=== PATIENT | male | born 1965 | race Caucasian/White ===

== ENCOUNTER 2021-02-28 08:57 | Inpatient (IN) ==
--- NOTE | 2021-02-28 09:45 | Emergency Department Note ---
Impression & Plan Acute hypoxemic respiratory failure due to COVID-19, Pneumonia due to COVID-19 virus ED Provider Note NAME: RAMOS FONG AGE: 55 SEX: M : 1965 ARRIVES VIA: Walk-In INFORMANT: Patient, ED PROVIDER(S): Gio Nunn MD Chief Complaint: Shortness of breath, low pulse oximeter HPI: Patient does present with the above complaints. The patient did not symptomatic around last Sunday. The patient did test positive this past Sunday. The patient was seen 2 days prior was noted to have Covid pneumonia and was discharged with a pulse oximeter. The patient was told to return to the patient did have lower oxygen saturations which the patient noticed in the mid 80s. Patient is a non-smoker and unvaccinated. No prior history of DVT or PE. No recent surgeries or hospitalizations. Patient denies any lower extremity swelling or calf pain. No prior heart or lung history. Patient has been trying an albuterol inhaler and steroids but without much improvement in symptoms. The patient states that initially he had more cough which has since improved. ROS: See HPI for pertinent positives and negatives. A total of 10 systems were reviewed and otherwise negative. Past medical history: See below Surgical history: See below Social history: See below Physical Exam: GENERAL: Wearing a mask, nontoxic in appearance. EYE EXAM: Normal conjunctiva. PERRL, no anisocoria and EOM's grossly intact w/o pain. NECK: Supple, no nuchal rigidity, no adenopathy, non-tender. No signs of meningismus. LUNGS: Clear to auscultation. Normal chest wall mechanics. HEART: Cardiac and regular, no MRG. ABDOMEN: Abdomen soft, non-tender, normo-active bowel sounds, no masses, no rebound or guarding. BACK: No CVA TTP. SKIN: No rashes and no bruising. UPPER EXTREMITIES: Upper extremities are grossly normal. LOWER EXTREMITIES: Grossly normal, no edema. Negative Homans' sign bilaterally. NEURO EXAM: A&O x3, cranial nerves II-XII grossly intact, normal speech, moves all 4 extremities on command w/o issue. Differential diagnoses: Reactive airway disease, pneumonia, pneumothorax, COPD, CHF, infections, cardiac ischemia, pulmonary embolism, musculoskeletal, gastrointestinal, as well as other pathologies. Course: Patient was seen and evaluated the bedside. Full history physical exam was performed. EKG interpreted by me Normal sinus rhythm, rate 97, normal intervals, normal axis, no ST changes. Imaging Studies: See Below Cardiac monitoring: An order was placed for continuous cardiac monitoring. The monitor shows a rate of 102 with tachycardic and regular rhythm. MDM: Patient did present hypoxic in the plate patient was placed on supplemental nasal cannula oxygen. Blood work was obtained and the patient was treated with dexamethasone. Patient has a normal white count and hemoglobin. The patient does have mild lymphopenia. Mild hypocalcemia noted. Troponin undetectable. Covid positive. Chest x-ray does show pneumonia. I did speak with the on-call hospitalist Mandy Almanzar PA-C and the patient was admitted by Dr. Marie. Critical Care: I have personally spent 38 minutes of critical care time in direct management of this patient. This includes bedside care, interpretation of diagnostic studies, and testing, discussion with consultants, patient, and family members, and other require inpatient management activities. This 38 minutes is in excess of all separately billable procedures. Past Med/Surg History Medical History Asthma Hypertension Surgical History S/P tonsillectomy Social History Smoking Status: Never smoker Hx Alcohol Use: No Hx Substance Use: No Preferred Language: Guinean Communication Ability: Effective Seamless Hosiery Knitter Required: No Beliefs That Will Affect Care: None Current Living Situation: Spouse Other Information That Helps Us Care for You: No Feels Safe at Home: Yes Safety Concerns: Feels Safe At This Time Assistive Devices: None Allergies Allergies Allergy/AdvReac Type Severity Reaction Status Date / Time No Known Allergies Allergy Unknown NONE Unverified 02/28/21 10:36 Home Meds Home Medications Medication Instructions Recorded Confirmed acetaminophen 500 mg tablet 500 mg PO Q6H PRN 02/28/21 02/28/21 (Tylenol Extra Strength) famotidine 20 mg tablet 20 mg PO HS 02/28/21 02/28/21 fluticasone furoate 100 1 inh INHALATION DAILY 02/28/21 02/28/21 mcg-vilanterol 25 mcg/dose inhalation powder (Breo Ellipta) loratadine 10 mg tablet 10 mg PO DAILY 02/28/21 02/28/21 Previous Rx's Medication Instructions Recorded albuterol sulfate 90 mcg/actuation 2 inh INHALATION Q4H PRN #6.7 g 02/25/21 aerosol inhaler prednisone 20 mg tablet 40 mg PO DAILY 4 Days #8 tab 02/25/21 Results & Data (ED) Vital Signs Vital Signs - 24 hr 02/28/21 08:59 02/28/21 10:18 02/28/21 10:28 Temperature 36.7 C Temperature Source Temporal Artery Scan Pulse Rate 102 H 95 H Pulse Rate from SpO2 Sensor 94 H Respiratory Rate 18 23 Respiratory Effort / Characteristics Non-Labored Respiratory Depth Normal Blood Pressure 153/85 H 160/92 H Blood Pressure Mean 107 114 Pulse Oximetry 88 L 93 94 Oxygen Delivery Method Room Air Nasal Cannula Oxygen Flow Rate 4 Sepsis Recent Fever Within 48 Hours No Sepsis New/Unexplained Change in Mental Status No Sepsis Action Taken by Nursing No Action Required 02/28/21 10:29 02/28/21 10:30 02/28/21 11:00 Temperature Temperature Source Pulse Rate 94 H 97 H Pulse Rate from SpO2 Sensor 93 H 96 H Respiratory Rate 21 14 Respiratory Effort / Characteristics Short of Breath Respiratory Depth Blood Pressure 148/97 H Blood Pressure Mean 114 Pulse Oximetry 94 90 Oxygen Delivery Method Nasal Cannula Nasal Cannula Oxygen Flow Rate 4 4 Sepsis Recent Fever Within 48 Hours Sepsis New/Unexplained Change in Mental Status Sepsis Action Taken by Nursing 02/28/21 11:12 02/28/21 11:30 02/28/21 12:00 Temperature Temperature Source Pulse Rate 95 H 93 H 94 H Pulse Rate from SpO2 Sensor 95 H 93 H 93 H Respiratory Rate 27 H 23 22 Respiratory Effort / Characteristics Respiratory Depth Blood Pressure 133/80 137/90 132/89 Blood Pressure Mean 97 105 103 Pulse Oximetry 92 93 90 Oxygen Delivery Method Nasal Cannula Nasal Cannula Nasal Cannula Oxygen Flow Rate 4 4 4 Sepsis Recent Fever Within 48 Hours Sepsis New/Unexplained Change in Mental Status Sepsis Action Taken by [facility] Medications Current Medication List: was personally reviewed by me Laboratory Data Attestation: I reviewed the patient's lab results. Result diagrams: 02/28/21 10:20 02/28/21 10:20 Lab Results 02/28/21 02/28/21 02/28/21 Range/Units 10:20 10:20 10:20 WBC 9.84 (4.8-10.8) K/uL RBC 4.38 L (4.7-6.1) M/uL Hgb 14.3 (14.0-18.0) g/dL Hct 43.0 (42-52) % MCV 98.2 (80-100) fL MCH 32.6 (25-34) pg MCHC 33.3 (32-36) g/dL RDW Std Deviation 48.7 H (36.4-46.3) fL RDW Coeff of Chapis 13.6 (11.5-14.5) % Plt Count 168 (130-400) K/uL MPV 10.0 (7.4-10.4) fL Immature Gran % (Auto) 0.3 % Neut % (Auto) 90.0 % Lymph % (Auto) 7.5 % Wise % (Auto) 2.1 % Eos % (Auto) 0.0 % Baso % (Auto) 0.1 % Neut # (Auto) 8.85 H (1.4-6.5) K/uL Lymph # (Auto) 0.74 L (1.2-3.4) K/uL Wise # (Auto) 0.21 (0.11-0.59) K/uL Eos # (Auto) 0.00 (0-0.5) K/uL Baso # (Auto) 0.01 (0-0.2) K/uL Immature Gran # (Auto) 0.03 H (0.00-0.02) K/uL Sodium 134 L (136-145) mmol/L Potassium 4.2 (3.5-5.1) mmol/L Chloride 101 (98-107) mmol/L Carbon Dioxide 29 (21-32) mmol/L Anion Gap 4.0 (3-11) BUN 17 (7-18) mg/dl Creatinine 1.30 (0.6-1.4) mg/dl Est Cr Clr Drug Dosing 84.7 ml/min Est GFR ( Amer) 70.7 ml/min Est GFR (Non-Af Amer) 61.0 ml/min BUN/Creatinine Ratio 13.0 (10-20) Glucose 118 H (70-99) mg/dl Calcium 8.1 L (8.5-10.1) mg/dl Magnesium 2.1 (1.8-2.4) mg/dl Total Bilirubin 0.6 (0.2-1) mg/dl AST 57 H (15-37) U/L ALT 51 (12-78) U/L Alkaline Phosphatase 59 (45-117) U/L Troponin I < 0.015 (0-0.045) ng/ml C-Reactive Protein 10.80 H (0-0.29) mg/dl Total Protein 7.1 (6.4-8.2) gm/dl Albumin 3.0 L (3.4-5.0) gm/dl Globulin 4.1 H (2.5-4.0) gm/dl Albumin/Globulin Ratio 0.7 L (0.9-2) Procalcitonin (0-0.5) ng/ml COVID-19 Eval Order SARS-CoV-2 (PCR) (Negative) 02/28/21 02/28/21 02/28/21 Range/Units 10:20 10:27 10:27 WBC (4.8-10.8) K/uL RBC (4.7-6.1) M/uL Hgb (14.0-18.0) g/dL Hct (42-52) % MCV (80-100) fL MCH (25-34) pg MCHC (32-36) g/dL RDW Std Deviation (36.4-46.3) fL RDW Coeff of Chapis (11.5-14.5) % Plt Count (130-400) K/uL MPV (7.4-10.4) fL Immature Gran % (Auto) % Neut % (Auto) % Lymph % (Auto) % Wise % (Auto) % Eos % (Auto) % Baso % (Auto) % Neut # (Auto) (1.4-6.5) K/uL Lymph # (Auto) (1.2-3.4) K/uL Wise # (Auto) (0.11-0.59) K/uL Eos # (Auto) (0-0.5) K/uL Baso # (Auto) (0-0.2) K/uL Immature Gran # (Auto) (0.00-0.02) K/uL Sodium (136-145) mmol/L Potassium (3.5-5.1) mmol/L Chloride (98-107) mmol/L Carbon Dioxide (21-32) mmol/L Anion Gap (3-11) BUN (7-18) mg/dl Creatinine (0.6-1.4) mg/dl Est Cr Clr Drug Dosing ml/min Est GFR ( Amer) ml/min Est GFR (Non-Af Amer) ml/min BUN/Creatinine Ratio (10-20) Glucose (70-99) mg/dl Calcium (8.5-10.1) mg/dl Magnesium (1.8-2.4) mg/dl Total Bilirubin (0.2-1) mg/dl AST (15-37) U/L ALT (12-78) U/L Alkaline Phosphatase (45-117) U/L Troponin I (0-0.045) ng/ml C-Reactive Protein (0-0.29) mg/dl Total Protein (6.4-8.2) gm/dl Albumin (3.4-5.0) gm/dl Globulin (2.5-4.0) gm/dl Albumin/Globulin Ratio (0.9-2) Procalcitonin 0.73 H (0-0.5) ng/ml COVID-19 Eval Order Covid19 at [facility] SARS-CoV-2 (PCR) POSITIVE A* (Negative) Administered Medications Enoxaparin Sodium (Enoxaparin Inj 40 Mg/0.4 Ml Syr) 40 mg SQ Q12 BERTO Stop: 03/30/21 14:59 Last Admin: 02/28/21 15:57 Dose: 40 mg Documented by: [id number] Remdesivir 200 mg/ Sodium (Chloride) 250 mls @ 125 mls/hr IV 1500 ONE; Protocol Stop: 02/28/21 16:59 Last Admin: 02/28/21 15:57 Dose: 125 mls/hr Documented by: [id number] Sodium Chloride (Sodium Chloride 0.9% 10ml Flush) 30 ml IV Q24H BERTO Stop: 03/04/21 14:00 Last Admin: 02/28/21 15:41 Dose: Not Given Documented by: [id number] Discontinued Medications Dexamethasone Sodium Phosphate (DexamethasonePf 10 Mg/Ml Vial) 6 mg IV NOW ONE Stop: 02/28/21 09:57 Last Admin: 02/28/21 10:19 Dose: 6 mg Documented by: [id number] Sodium Chloride (Nss 1000ml) 1,000 mls @ 999 mls/hr IV .Q1H1M BERTO Stop: 02/28/21 11:00 Last Infusion: 02/28/21 11:24 Dose: 0 mls/hr Documented by: [id number] Admin: 02/28/21 10:19 Dose: 999 mls/hr Documented by: [id number] Imaging Data Radiologist's Impression: Chest X-Ray 02/28/21 09:56 XR chest 1V portable HISTORY: 55 years-old Male Dyspnea acute shortness of breath with cough COMPARISON: Chest radiograph 02/25/2021, CTA chest 11/26/2014 TECHNIQUE: Portable AP view of the chest FINDINGS: Cardiac silhouette is enlarged. Progressively worsened multifocal bilateral airspace opacities. No pneumothorax or large pleural effusion. Spondylitic spur ring of the spine. No acute fracture. IMPRESSION: Progressively worsened multifocal pneumonia. ACT 112: Negative or not required by law. The above report was generated using voice recognition software. It may contain grammatical, syntax or spelling errors. Electronically signed by: Dani Medina M.D. 02/28/2021 10:57 AM Discharge Plan Visit Data Chief Complaint: Respiratory Problems Stated Complaint: LOW OXY ED Provider: Gio Nunn Discharge Problem: Acute hypoxemic respiratory failure due to COVID-19, Pneumonia due to COVID-19 virus Patient Disposition: Admitted As Inpatient Discharge Instructions Interventions: ED Discharge Assessment Last Done: 02/28/21 12:54
[2021-02-28] MEDS ORDERED: dexAMETHasone**PF** 10 MG/ML VIAL IV ONE (09:56)
[2021-02-28] MEDS ORDERED: SODIUM CHLORIDE 0.9% 1000ML 1,000 ML IV SCH (10:00)
[2021-02-28 10:43] LABS: Basophils # (auto) 0.01 K/uL (0-0.2); Basophils % (auto) 0.1 %; Hemoglobin 14.3 g/dL (14.0-18.0); Immature Granulocytes # (auto) 0.03 K/uL (0.00-0.02); Immature Granulocytes % (auto) 0.3 %; Lymphocytes # (auto) 0.74 K/uL (1.2-3.4); Lymphocytes % (auto) 7.5 %; Mean Corpuscular Hemoglobin 32.6 pg (25-34); Mean Corpuscular Hgb Conc 33.3 g/dL (32-36); Mean Corpuscular Volume 98.2 fL (80-100); Monocytes # (auto) 0.21 K/uL (0.11-0.59); Monocytes % (auto) 2.1 %; Neutrophils # (auto) 8.85 K/uL (1.4-6.5); Platelet Count 168 K/uL (130-400); RDW Coefficient of Variation 13.6 % (11.5-14.5); RDW Standard Deviation 48.7 fL (36.4-46.3); Red Blood Count 4.38 M/uL (4.7-6.1); White Blood Count 9.84 K/uL (4.8-10.8)
--- NOTE | 2021-02-28 10:59 | XRay Report ---
XR chest 1V portable HISTORY: 55 years-old Male Dyspnea acute shortness of breath with cough COMPARISON: Chest radiograph 02/25/2021, CTA chest 11/26/2014 TECHNIQUE: Portable AP view of the chest FINDINGS: Cardiac silhouette is enlarged. Progressively worsened multifocal bilateral airspace opacities. No pn eumothorax or large pleural effusion. Spondylitic spurring of the spine. No acute fracture. IMPRESSION: Progressively worsened multifocal pneumonia. ACT 112: Negative or not required by law. The above report was generated using voice recognition software. It may contain grammatical, syntax o r spelling errors. Electronically signed by: Dani Medina M.D. 02/28/2021 10:57 AM
[2021-02-28 11:01] LABS: Alanine Aminotransferase 51 U/L (12-78); Aspartate Aminotransferase 57 U/L (15-37); Blood Urea Nitrogen 17 mg/dl (7-18); Calcium 8.1 mg/dl (8.5-10.1); Carbon Dioxide 29 mmol/L (21-32); Chloride 101 mmol/L (98-107); Creatinine Clr Calc Pharmacy 84.7 ml/min; Est GFR (African American) 70.7 ml/min; Glucose 118 mg/dl (70-99); Magnesium 2.1 mg/dl (1.8-2.4); Potassium 4.2 mmol/L (3.5-5.1); Sodium 134 mmol/L (136-145)
[2021-02-28 11:06] LABS: Albumin Globulin Ratio 0.7 (0.9-2); Alkaline Phosphatase 59 U/L (45-117); Bilirubin,Total 0.6 mg/dl (0.2-1); Globulin 4.1 gm/dl (2.5-4.0); Total Protein 7.1 gm/dl (6.4-8.2); Troponin I < 0.015 ng/ml (0-0.045)
--- NOTE | 2021-02-28 11:38 | History & Physical Report ---
Date of Service February 28, 2021 Assessment & Plan (1) Pneumonia due to COVID-19 virus: (2) Asthma: (3) Hypoxia: Plan: Pt with known COVID exposure about two weeks ago, symptoms x 9 days, tested positive last week, diagnosed with pneumonia on Sunday, now with hypoxia on RA in past 24 hrs. - Received IV dexamethasone in ED - will continue 6 mg IV daily for up to 10 days - Pt agreeable to Remdesivir - reviewed indications, risks, and benefits. Monitor labs daily - Continue supplemental O2 to maintain pulseox >92% - currently requiring 4 L via NC - Check CRP and procalcitonin - COVID isolation precautions Pt seen and reviewed with attending physician, Dr. Marie. Plan of care discussed and as outlined above. Code Status: full code DVT Prophylaxis: Lovenox 40 mg subQ BID Analy Almanzar PA-C History of Present Illness Chief Complaint: low oxygen levels Primary Care Provider: Bianka Baker PA-C This is a 55 y/o male with a PMH of moderate persistent asthma who presents for evaluation of hypoxia and worsening shortness of breath. Pt was exposed to a co-worker with pneumonia about two weeks ago. Nine days ago, he started with a cough productive of sputum and fatigue. Five days ago he decided to get tested for COVID due to the exposure and worsening symptoms. The test came back positive on Sunday (3 days ago) and he was seen by his PCP for possible pneumonia. His O2 sats in the office were borderline on RA (low 90s) and he was tachycardic so he was referred to the ED for evaluation. In the ED, he was diagnosed with COVID pneumonia, given steroids and an albuterol inhaler and discharged home with a pulseox to monitor his sats at home. Last night his sats started to drop into the 84-87% range so this morning he came to the ED for evaluation and additional treatment. He has now been referred for admission. Pt has not been vaccinated for COVID. Today, he continues with a cough that was initially productive but now less so. No hemoptysis. Ribs sore from coughing so hard/so much. He is short of breath with exertion and with lying flat. Breathing seems to be okay at rest if he is sitting up. Fever started a few days ago - Tmax 102.5F. +chills and sweats. Using Tylenol with some relief. Mild nausea but no vomiting or diarrhea. Appetite decreased but trying to keep up with fluids - water, OJ, tim ronny. No significant myalgias or arthralgias. No change in taste or smell. +fatigue. No TORRES, CP, chest heaviness but does not difficulty taking a deep breath, wheezing at times. Occasional dizziness with position changes. Recent diagnosis with asthma - two years of chronic cough. History of frequent pneumonia past ten years - around twice a year. Allergies Allergy/AdvReac Type Severity Reaction Status Date / Time No Known Allergies Allergy Unknown NONE Unverified 02/28/21 10:36 Home Medications Medication Instructions Recorded Confirmed Type albuterol sulfate 90 mcg/actuation 2 inh INHALATION Q4H PRN #6.7 g 02/25/21 Rx aerosol inhaler prednisone 20 mg tablet 40 mg PO DAILY 4 Days #8 tab 02/25/21 02/28/21 Rx acetaminophen 500 mg tablet 500 mg PO Q6H PRN 02/28/21 02/28/21 History (Tylenol Extra Strength) famotidine 20 mg tablet 20 mg PO HS 02/28/21 02/28/21 History fluticasone furoate 100 1 inh INHALATION DAILY 02/28/21 02/28/21 History mcg-vilanterol 25 mcg/dose inhalation powder (Breo Ellipta) loratadine 10 mg tablet 10 mg PO DAILY 02/28/21 02/28/21 History Past Med/Surg History Medical History Asthma Hypertension Surgical History S/P tonsillectomy Social History Smoking Status: Never smoker Hx Alcohol Use: No Hx Substance Use: No Preferred Language: Omani Communication Ability: Effective Office Administrative Assistant Required: No Beliefs That Will Affect Care: None Current Living Situation: Spouse Other Information That Helps Us Care for You: No Feels Safe at Home: Yes Safety Concerns: Feels Safe At This Time Assistive Devices: Oxygen - Continuous Review of Systems Review of Systems: All systems reviewed & are unremarkable except as noted in HPI & below Constitutional: + fever, + chills, + fatigue and + weakness Eyes: no diplopia and no worsening vision Ear, Nose, Mouth, Throat: no nasal congestion and no sore throat Respiratory: as per Subjective / HPI, + cough, + dyspnea on exertion, + pain with cough and + sputum production; no hemoptysis and no wheezing Cardiovascular: + orthopnea and + lightheadedness (positional); no chest pain with activity, no palpitations, no syncope and no edema Gastrointestinal: + nausea; no abdominal pain, no vomiting, no diarrhea/loose stools and no blood in stools Genitourinary: no dysuria or no hematuria Musculoskeletal: no back pain, no neck pain and no joint pain Integumentary: no rash, no skin ulcer and no erythema Neurologic: + generalized weakness; no falls, no seizure-like activity, no syncope, no headache(s) and no confusion Psychiatric: no depression and no anxiety Physical Exam Constitutional: well developed and well nourished; no acute distress Eyes: + anicteric sclerae Neck: trachea midline Respiratory: no respiratory distress Auscultation: + diminished lung sounds and + crackles (right > left - from bases to mid-lung); no rhonchi and no wheezes Cardiovascular: Rate/Rhythm: regular rate and regular rhythm Heart Sounds: no gallop, no murmur and no cardiac rub Vessels: dorsalis pedis pulses present and radial pulses present Extremities: no calf tenderness and no edema Gastrointestinal (Abdomen): Inspection/Auscultation: normal bowel sounds; abdomen not distended Percussion/Palpation: abdomen soft; abdomen nontender Musculoskeletal: Head/Neck/Chest: normocephalic, head atraumatic and neck supple Skin: no rashes, warm and dry Neurologic: moves all extremities; no focal motor deficits and not confused Psychiatric: A+Ox3, euthymic affect Results & Data Results & Data ([facility]) Vital Signs (Past 12 Hours) Vital Signs Temp Pulse Resp BP Pulse Ox 02/28/21 11:12 95 H 27 H 133/80 92 02/28/21 11:00 97 H 14 90 02/28/21 10:30 94 H 21 148/97 H 94 02/28/21 10:28 94 02/28/21 10:18 95 H 23 160/92 H 93 02/28/21 08:59 36.7 C 102 H 18 153/85 H 88 L Laboratory Results Laboratory Results - last 24 hr 02/28/21 02/28/21 02/28/21 10:20 10:20 10:20 WBC 9.84 RBC 4.38 L Hgb 14.3 Hct 43.0 MCV 98.2 MCH 32.6 MCHC 33.3 RDW Std Deviation 48.7 H RDW Coeff of Chapis 13.6 Plt Count 168 MPV 10.0 Immature Gran % (Auto) 0.3 Neut % (Auto) 90.0 Lymph % (Auto) 7.5 [place] % (Auto) 2.1 Eos % (Auto) 0.0 Baso % (Auto) 0.1 Neut # (Auto) 8.85 H Lymph # (Auto) 0.74 L [place] # (Auto) 0.21 Eos # (Auto) 0.00 Baso # (Auto) 0.01 Immature Gran # (Auto) 0.03 H Sodium 134 L Potassium 4.2 Chloride 101 Carbon Dioxide 29 Anion Gap 4.0 BUN 17 Creatinine 1.30 Est Cr Clr Drug Dosing 84.7 Est GFR ( Amer) 70.7 Est GFR (Non-Af Amer) 61.0 BUN/Creatinine Ratio 13.0 Glucose 118 H Calcium 8.1 L Magnesium 2.1 Total Bilirubin 0.6 AST 57 H ALT 51 Alkaline Phosphatase 59 Troponin I < 0.015 C-Reactive Protein Pending Total Protein 7.1 Albumin 3.0 L Globulin 4.1 H Albumin/Globulin Ratio 0.7 L Procalcitonin COVID-19 Eval Order SARS-CoV-2 (PCR) 02/28/21 02/28/21 02/28/21 10:20 10:27 10:27 WBC RBC Hgb Hct MCV MCH MCHC RDW Std Deviation RDW Coeff of Chapis Plt Count MPV Immature Gran % (Auto) Neut % (Auto) Lymph % (Auto) [place] % (Auto) Eos % (Auto) Baso % (Auto) Neut # (Auto) Lymph # (Auto) [place] # (Auto) Eos # (Auto) Baso # (Auto) Immature Gran # (Auto) Sodium Potassium Chloride Carbon Dioxide Anion Gap BUN Creatinine Est Cr Clr Drug Dosing Est GFR ( Amer) Est GFR (Non-Af Amer) BUN/Creatinine Ratio Glucose Calcium Magnesium Total Bilirubin AST ALT Alkaline Phosphatase Troponin I C-Reactive Protein Total Protein Albumin Globulin Albumin/Globulin Ratio Procalcitonin Pending COVID-19 Eval Order Covid19 at [facility] SARS-CoV-2 (PCR) POSITIVE A* Diagnostic Findings Chest X-ray 02/28/21 - IMPRESSION: Progressively worsened multifocal pneumonia. Medications Administered Discontinued Medications Dexamethasone Sodium Phosphate (DexamethasonePf 10 Mg/Ml Vial) 6 mg IV NOW ONE Stop: 02/28/21 09:57 Last Admin: 02/28/21 10:19 Dose: 6 mg Documented by: [id number] Sodium Chloride (Nss 1000ml) 1,000 mls @ 999 mls/hr IV .Q1H1M BERTO Stop: 02/28/21 11:00 Last Infusion: 02/28/21 11:24 Dose: 0 mls/hr Documented by: [id number] Admin: 02/28/21 10:19 Dose: 999 mls/hr Documented by: [id number] Supervising Physician Co-Signing Physician Notes Attending addendum The patient was seen and examined in telemetry unit and in the Covid room He is not being vaccinated for Covid and has been having symptoms since Sunday last with increasing shortness of breath and cough Was in ER on Sunday and was sent home and the condition got worse over the weekend Has been requiring 6 L of nasal cannula oxygen to maintain saturation now He has cough and also has had fever On examination Obese with minimal distress at rest Hemodynamically stable with blood pressure on the upper side Chest-decreased breath sounds with basilar crackles Heart-S1-S2, regular Abdomen-benign Extremities-negative for any edema Admission labs, imaging studies reviewed Has COVID-19 pneumonia Started with intravenous dexamethasone and remdesivir Oxygen as needed to keep saturation above 90% Proning if needed Cough suppressant Use of spirometry and also flutter valve Agree with assessment and plan as outlined above by RENNY Zhong Dr
[2021-02-28] MEDS ORDERED: ACETAMINOPHEN 325 MG TAB PO PRN (13:59)
--- NOTE | 2021-02-28 14:35 | Electrocardiogram Report ---
Test Reason : Blood Pressure : / mmHG Vent. Rate : 097 BPM Atrial Rate : 097 BPM P-R Int : 120 ms QRS Dur : 074 ms QT Int : 346 ms P-R-T Axes : 013 046 019 degrees QTc Int : 439 ms Normal sinus rhythm Normal ECG When compared with ECG of 18-AUG-2020 18:08, No significant change was found Confirmed by Rg Soto ([id number]) on 02/28/2021 2:35:07 PM Referred By: Confirmed By:Tejas Soto
[2021-02-28] MEDS ORDERED: REMDESIVIR 200 mg: Day 1 IV ONE (15:00)
[2021-02-28] MEDS: SODIUM CHLORIDE 0.9% 10ML FLUSH IV SCH (15:41)
[2021-02-28] MEDS: ENOXAPARIN INJ 40 MG/0.4 ML SYR SQ SCH ×2 (15:57→22:08)
[2021-02-28] MEDS ORDERED: DOXYCYCLINE HYCLATE 100 MG in DEXTROSE 5% 100 ML IV STA (22:11)
--- NOTE | 2021-02-28 22:11 | Communication Note ---
Date of Service: February 28, 2021 Made aware by RN off increasing O2 requirement, O2 sats 80s on 10 L. Patient with junky cough symptoms. Chest x-ray as per my deposition bilateral pneumonia AP Acute hypoxemic respiratory failure secondary to COVID-19 pneumonia With superimposed bacterial infection given elevated procalcitonin Supplemental O2 Check ABG Ceftriaxone, Doxycycline Will relay to AM provider.
[2021-02-28] MEDS ORDERED: LEVALBUTEROL TARTRATE 15 GM HFA.AER.AD INH PRN (22:12)
[2021-02-28] MEDS ORDERED: LEVALBUTEROL TARTRATE 15 GM HFA.AER.AD INH STA (22:12)
[2021-02-28] MEDS ORDERED: methylPREDNISolone 20 MG in SYRINGE 0 ML IV ONE (22:15)
[2021-02-28 23:01] LABS: Base Excess ABG 1.1 mEq/L (-9-1.8); HCO3 ABG 24 mmol/L (19-24); Oxygen Saturation ABG 90.7 % (90-95); PCO2 ABG 32 mmHg (35-46); PO2 ABG 56 mmHg (80-95); pH ABG 7.49 (7.35-7.45)
[2021-02-28 23:03] LABS: Allen Test Pos (Pos)
[2021-02-28] MEDS: cefTRIAXone SODIUM 2,000 MG in DEXTROSE 5% 50 ML IV SCH (23:41)
[2021-03-01] MEDS ORDERED: ACETAMINOPHEN 325 MG TAB PO STA (00:43)
[2021-03-01] MEDS: BENZONATATE 100 MG CAPSULE PO PRN ×2 (01:46→21:23)
--- NOTE | 2021-03-01 06:46 | XRay Report ---
XR chest 1V portable HISTORY: 55 years-old Male low o2 acute hypoxia COMPARISON: Chest radiograph of same day at 10:33 AM TECHNIQUE: Portable AP view of the chest FINDINGS: Cardiac silhouette is enlarged, unchanged. No pneumothorax or large pleural effusion. Dense bilateral airspace opacities, left greater than right are redemonstrated and appear generally unchanged. No ac deuce fracture. IMPRESSION: No significant change of the bilateral airspace opacities compatible with multifocal pneu monia. ACT 112: Negative or not required by law. The above report was generated using voice recognition software. It may contain grammatical, syntax o r spelling errors. Electronically signed by: Dani Medina M.D. 03/01/2021 6:45 AM
[2021-03-01 06:58] LABS: BUN Creatinine Ratio 16.7 (10-20); Calcium 8.3 mg/dl (8.5-10.1); Creatinine Clr Calc Pharmacy 98.9 ml/min; Est GFR (African American) 86.5 ml/min; Est GFR (Non-African American) 74.6 ml/min; Magnesium 2.5 mg/dl (1.8-2.4); Phosphorus 3.4 mg/dl (2.5-4.9)
[2021-03-01] MEDS: ENOXAPARIN INJ 40 MG/0.4 ML SYR SQ SCH ×2 (08:04→20:35)
[2021-03-01] MEDS: DOXYCYCLINE HYCLATE 100 MG CAP PO SCH ×2 (08:04→20:35)
[2021-03-01] MEDS: dexAMETHasone 6 MG in SYRINGE 0 ML IV SCH (08:04)
[2021-03-01] MEDS ORDERED: FUROSEMIDE 40 MG in SYRINGE 0 ML IV ONE (08:43)
[2021-03-01] MEDS ORDERED: FUROSEMIDE 40 MG/4 ML VIAL IV ONE (09:00)
[2021-03-01] MEDS: REMDESIVIR 100 MG in SODIUM CHLORIDE 0.9% 230 ML IV SCH (11:37)
[2021-03-01] MEDS: SODIUM CHLORIDE 0.9% 10ML FLUSH IV SCH (13:36)
--- NOTE | 2021-03-01 19:09 | Hospitalist Progress Note ---
Date of Service March 01, 2021 Assessment & Plan (1) Pneumonia due to COVID-19 virus: Plan: Pt with known COVID exposure about two weeks ago, symptoms x 9 days, tested positive last week, diagnosed with pneumonia on Sunday, now with hypoxia on RA in past 24 hrs. -Did not receive any vaccine for COVID-19 - Received IV dexamethasone in ED - will continue 6 mg IV daily for up to 10 days - Pt agreeable to Remdesivir - reviewed indications, risks, and benefits. Mo nitor labs daily - Continue supplemental O2 to maintain pulseox >92% - currently requiring 4 L via NC - COVID isolation precautions -Has been using spirometer and also flutter valve -Advised to have prone position as tolerated Possible superimposed bacterial pneumonia Condition got worse last night Procalcitonin was elevated He has been started with intravenous ceftriaxone and doxycycline We will monitor (2) Asthma: Plan: Likely complicating hypoxia and symptoms (3) Hypoxia: Plan: Acute hypoxic respiratory failure secondary to COVID-19 pneumonia Plan: Code Status: full code DVT Prophylaxis: Lovenox 40 mg subQ BID Admission and Anticipated Discharge Date Admission Date: February 28, 2021 Subjective 03/01/2021 The patient was seen and examined in telemetry unit and in the Covid room He was noted to be more shortness of breath last night and required increasing flow of oxygen to maintain saturation He was started with intravenous antibiotic on top of Covid treatment Has been feeling a little bit better this morning Review of Systems Constitutional: + fever, + chills, + fatigue and + weakness Eyes: no diplopia and no worsening vision Ear, Nose, Mouth, Throat: no nasal congestion and no sore throat Respiratory: as per Subjective / HPI, + cough, + dyspnea on exertion, + pain with cough and + sputum production; no hemoptysis and no wheezing Cardiovascular: + orthopnea and + lightheadedness (positional); no chest pain with activity, no palpitations, no syncope and no edema Gastrointestinal: + nausea; no abdominal pain, no vomiting, no diarrhea/loose stools and no blood in stools Genitourinary: no dysuria or no hematuria Musculoskeletal: no back pain, no neck pain and no joint pain Integumentary: no rash, no skin ulcer and no erythema Neurologic: + generalized weakness; no falls, no seizure-like activity, no syncope, no headache(s) and no confusion Psychiatric: no depression and no anxiety Physical Exam Physical Exam: Lying in bed with moderate shortness of breath at rest Constitutional: well developed, well nourished, + ill appearing and + obese Eyes: PERRL, conjunctivae normal, anicteric sclerae ENMT: external ear and nose normal, oropharynx normal Neck: trachea midline, no thyromegaly Respiratory: + respiratory distress, + labored breathing, + cough and + tachypneic Auscultation: + diminished lung sounds and + crackles (Minimal crackles at the bases) Cardiovascular: Rate/Rhythm: regular rate and regular rhythm; not tachycardic Heart Sounds: normal S1 and normal S2; no murmur Extremities: + edema (Trace edema bilaterally) Gastrointestinal (Abdomen): Inspection/Auscultation: normal bowel sounds; abdomen not distended Percussion/Palpation: abdomen soft; abdomen nontender Musculoskeletal: No acute arthritis in any joint Neurologic: Alert, awake and oriented x3. No focal sensory and motor deficit appreciated Results & Data Results & Data ([facility]) Vital Signs (Past 12 Hours) Vital Signs Temp Pulse Resp BP Pulse Ox 03/01/21 15:29 36.5 C 90 18 126/83 92 03/01/21 15:14 87 18 91 03/01/21 11:31 77 16 90 03/01/21 11:09 36.9 C 89 22 134/92 90 03/01/21 07:59 72 18 93 03/01/21 07:12 36.6 C 80 23 129/87 90 Laboratory Results [facility] 03/01/21 04:58 Sodium 135 L Potassium 5.0 D Chloride 102 Carbon Dioxide 28 BUN 18 Creatinine 1.10 Glucose 134 H Calcium 8.3 L Medications Administered Current Inpatient Medications Acetaminophen (Acetaminophen 325 Mg Tab) 650 mg PO Q4H PRN PRN Reason: Pain or Fever Stop: 03/30/21 13:58 Benzonatate (Benzonatate 100 Mg Capsule) 100 mg PO TID PRN PRN Reason: Cough Stop: 03/31/21 00:42 Last Admin: 03/01/21 01:46 Dose: 100 mg Documented by: Doxycycline Hyclate (Doxycycline Hyclate 100 Mg Cap) 100 mg PO BID BERTO Stop: 03/08/21 08:59 Last Admin: 03/01/21 08:04 Dose: 100 mg Documented by: Enoxaparin Sodium (Enoxaparin Inj 40 Mg/0.4 Ml Syr) 40 mg SQ Q12 BERTO Stop: 03/30/21 14:59 Last Admin: 03/01/21 08:04 Dose: 40 mg Documented by: Remdesivir 100 mg/ Sodium (Chloride) 250 mls @ 250 mls/hr IV Q24H BERTO; Protocol Stop: 03/04/21 12:59 Last Infusion: 03/01/21 13:36 Dose: Infused Documented by: Dexamethasone 6 mg/ Syringe 1.5 mls @ 1 mls/min IV DAILY BERTO Stop: 03/11/21 08:59 Last Admin: 03/01/21 08:04 Dose: 1 mls/min Documented by: Ceftriaxone Sodium 2,000 mg/ (Dextrose) 70 mls @ 100 mls/hr IV Q24H BERTO; Protocol Stop: 03/07/21 22:29 Last Infusion: 03/01/21 00:34 Dose: Infused Documented by: Levalbuterol HCl (Levalbuterol Tartrate 15 Gm Hfa.Aer.Ad) 2 puffs INH Q4H PRN PRN Reason: sob/wheeze Stop: 03/30/21 22:11 Sodium Chloride (Sodium Chloride 0.9% 10ml Flush) 30 ml IV Q24H [facility] Stop: 03/04/21 14:00 Last Admin: 03/01/21 13:36 Dose: 30 ml Documented by:
[2021-03-01] MEDS: cefTRIAXone SODIUM 2,000 MG in DEXTROSE 5% 50 ML IV SCH (21:23)
[2021-03-02 07:35] LABS: Hematocrit (blood only) 42.2 % (42-52); Hemoglobin 14.3 g/dL (14.0-18.0); Lymphocytes % (auto) 9.1 %; Mean Corpuscular Hemoglobin 32.6 pg (25-34); Mean Corpuscular Hgb Conc 33.9 g/dL (32-36); Mean Corpuscular Volume 96.3 fL (80-100); Mean Platelet Volume 10.2 fL (7.4-10.4); Monocytes % (auto) 6.9 %; Platelet Count 240 K/uL (130-400); RDW Coefficient of Variation 13.4 % (11.5-14.5); RDW Standard Deviation 47.6 fL (36.4-46.3); Red Blood Count 4.38 M/uL (4.7-6.1); White Blood Count 9.13 K/uL (4.8-10.8)
[2021-03-02 07:36] LABS: Basophils # (auto) 0.01 K/uL (0-0.2); Basophils % (auto) 0.1 %; Immature Granulocytes # (auto) 0.08 K/uL (0.00-0.02); Immature Granulocytes % (auto) 0.9 %; Lymphocytes # (auto) 0.83 K/uL (1.2-3.4); Monocytes # (auto) 0.63 K/uL (0.11-0.59); Neutrophils # (auto) 7.58 K/uL (1.4-6.5)
[2021-03-02 08:07] LABS: BUN Creatinine Ratio 23.4 (10-20); C Reactive Protein 8.06 mg/dl (0-0.29); Calcium 8.6 mg/dl (8.5-10.1); Creatinine Clr Calc Pharmacy 102.2 ml/min; Est GFR (African American) 89.5 ml/min; Est GFR (Non-African American) 77.2 ml/min; Potassium 4.4 mmol/L (3.5-5.1)
[2021-03-02] MEDS: dexAMETHasone 6 MG in SYRINGE 0 ML IV SCH (08:33)
[2021-03-02] MEDS: DOXYCYCLINE HYCLATE 100 MG CAP PO SCH ×2 (08:34→20:24)
[2021-03-02] MEDS: ENOXAPARIN INJ 40 MG/0.4 ML SYR SQ SCH ×2 (08:34→20:23)
[2021-03-02] MEDS: REMDESIVIR 100 MG in SODIUM CHLORIDE 0.9% 230 ML IV SCH (12:37)
[2021-03-02] MEDS: SODIUM CHLORIDE 0.9% 10ML FLUSH IV SCH (13:40)
--- NOTE | 2021-03-02 20:32 | Hospitalist Progress Note ---
Date of Service March 02, 2021 Assessment & Plan (1) Acute hypoxemic respiratory failure due to COVID-19: Plan: #. Pneumonia due to COVID-19 virus: Pt with known COVID exposure about two weeks ago, symptoms x 9 days, tested positive last week, diagnosed with pneumonia on Sunday -Did not receive any vaccine for COVID-19 - Received IV dexamethasone in ED - will continue 6 mg IV daily for up to 10 days - Pt agreeable to Remdesivir - reviewed indications, risks, and benefits. Monitor labs daily - Continue supplemental O2 to maintain pulseox >92% - currently requiring 15 L via NC, will get Pulm consult. - COVID isolation precautions -Has been using spirometer and also flutter valve -Advised to have prone position as tolerated #. Possible superimposed bacterial pneumonia Condition got worse last night Procalcitonin was elevated He has been started with intravenous ceftriaxone and doxycycline We will monitor #. Asthma: Likely complicating hypoxia and symptoms #. Hypoxia: Acute hypoxic respiratory failure secondary to COVID-19 pneumonia See above Code Status: full code DVT Prophylaxis: Lovenox 40 mg subQ BID Admission and Anticipated Discharge Date Admission Date: February 28, 2021 Subjective Patient was sitting up in bed, NAD, on 15 L nasal cannula oxygen. No issues overnight. Patient is eating and moving bowels okay. Patient reports improving cough. Denies any headache/chest pain/palpitation/other review of symptoms. Physical Exam Physical Exam: GENERAL: Alert and oriented x3. NAD, on 15L. HEENT: No pallor, no icterus. Pupils equal, round and reactive to light. Oral mucosa moist. NECK: No JVD, no neck masses. HEART: S1 and S2 heard. Regular rate and rhythm. No murmur, no gallop. RESPIRATORY SYSTEM: Normal AP diameter. No accessory muscle use. No wheezing, no crackles. Decreased breath sounds ABDOMEN: Soft, bowel sounds present, nontender, no distention. CENTRAL NERVOUS SYSTEM: No facial droop. Speech is clear. Obeys simple commands. Moves extremities. EXTREMITIES: No edema, no erythema seen. Results & Data Results & Data ([facility]) Vital Signs (Past 12 Hours) Vital Signs Temp Pulse Pulse Resp BP Pulse Ox 03/02/21 19:57 36.7 C 75 20 159/98 H 91 03/02/21 16:00 78 03/02/21 15:06 36.8 C 77 20 128/85 90 03/02/21 11:40 36.9 C 69 20 123/76 91 03/02/21 09:14 77
[2021-03-02] MEDS: cefTRIAXone SODIUM 2,000 MG in DEXTROSE 5% 50 ML IV SCH (22:30)
[2021-03-03] MEDS: DOXYCYCLINE HYCLATE 100 MG CAP PO SCH ×2 (08:19→19:56)
[2021-03-03] MEDS: ENOXAPARIN INJ 40 MG/0.4 ML SYR SQ SCH (08:19)
[2021-03-03] MEDS: dexAMETHasone 6 MG in SYRINGE 0 ML IV SCH (08:19)
[2021-03-03 09:17] LABS: Creatinine Clr Calc Pharmacy 99.8 ml/min; Est GFR (African American) 86.5 ml/min; Est GFR (Non-African American) 74.6 ml/min
[2021-03-03] MEDS: REMDESIVIR 100 MG in SODIUM CHLORIDE 0.9% 230 ML IV SCH (11:42)
[2021-03-03] MEDS: SODIUM CHLORIDE 0.9% 10ML FLUSH IV SCH (11:42)
--- NOTE | 2021-03-03 16:06 | Pulmonary Consultation ---
Date of Consultation March 03, 2021 Assessment & Plan (1) Acute hypoxemic respiratory failure due to COVID-19: (2) Pneumonia due to COVID-19 virus: (3) Obesity (BMI 30-39.9): 55-year-old male with a history of asthma, obesity and allergic rhinitis presenting to the hospital due to COVID-19 viral pneumonia. He has elevated inflammatory markers and severe hypoxemia. I discussed baricitinib with the patient. He understands the indications, risks and benefits. He denies any history of tuberculosis or recent TB exposure. He is consenting to receiving baricitinib. We will start him on the 4 mg daily oral dose. This can be continued for 14 days total or until the day of discharge, which ever comes first. Continue a 10-day course of Decadron 6 mg daily. Continue remdesivir for 5 days. Recommend checking a procalcitonin tomorrow to make sure it is trending down. Continue to wean oxygen as able to maintain saturations above 90%. Continue self/awake proning. Continue pulmonary toileting with flutter valve and Acapella. I have increased his Lovenox dose to half a milligram per kilogram twice daily given his weight for VTE prophylaxis. Patient's case was discussed with the bedside nurse and the patient's pharmacist. Please keep a close eye on his creatinine and LFTs while on baricitinib and remdesivir. Pulmonary will sign off at this time. Please call with questions. Thank you for the consultation. History of Present Illness Reason for Consultation: Hypoxia secondary to COVID-19 viral pneumonia Attending Physician: Alice Serrano MD History of Present Illness 55-year-old male with a past medical history of asthma, obesity and allergic rhinitis who presented to the hospital on 02/28/2021 due to worsening shortness of breath. Patient had symptoms that develop approximately 9 to 10 days prior to his hospitalization which included cough and fatigue. He tested positive for COVID-19 last week. In the emergency department he was found to be hypoxemic. He has been on high flow nasal cannula. He was weaned down from Vapotherm to 15 L of oxygen. He is saturating in the high 80s to low 90s. He denies any shortness of breath at this present time. He is using his incentive spirometer and trying to prone as much as he can. He denies any chest pain at present. Chest x-ray completed on 02/28/2021 demonstrated dense bilateral airspace opacities. No significant leukocytosis seen. ABG completed on 02/28/2021 demonstrated respiratory alkalosis with hypoxia. He is currently on remdesivir 100 mg daily, Decadron 6 mg daily, ceftriaxone 2000 mg daily and doxycycline 100 mg twice daily. His procalcitonin was mildly elevated to 0.73 on 02/28/2021. CRP is elevated to 8.06 as of 03/02/2021. He is current input and output suggests that he is -1.1 L. Allergies Allergy/AdvReac Type Severity Reaction Status Date / Time No Known Allergies Allergy Unknown NONE Unverified 02/28/21 10:36 Home Medications Medication Instructions Recorded Confirmed Type albuterol sulfate 90 mcg/actuation 2 inh INHALATION Q4H PRN #6.7 g 02/25/21 02/28/21 Rx aerosol inhaler prednisone 20 mg tablet 40 mg PO DAILY 4 Days #8 tab 02/25/21 02/28/21 Rx acetaminophen 500 mg tablet 500 mg PO Q6H PRN 02/28/21 02/28/21 History (Tylenol Extra Strength) famotidine 20 mg tablet 20 mg PO HS 02/28/21 02/28/21 History fluticasone furoate 100 1 inh INHALATION DAILY 02/28/21 02/28/21 History mcg-vilanterol 25 mcg/dose inhalation powder (Breo Ellipta) loratadine 10 mg tablet 10 mg PO DAILY 02/28/21 02/28/21 History Patient History Medical History (Updated 03/03/21 @ 16:01 by Kapil Sandhu MD) Asthma Hypertension Obesity (BMI 30-39.9) Surgical History S/P tonsillectomy Social History Smoking Status: Never smoker Hx Alcohol Use: No Hx Substance Use: No Preferred Language: Indian Communication Ability: Effective Cut Out Stitcher Required: No Beliefs That Will Affect Care: None Current Living Situation: Spouse Other Information That Helps Us Care for You: No Feels Safe at Home: Yes Safety Concerns: Feels Safe At This Time Assistive Devices: None Review of Systems Review of Systems: All systems reviewed & are unremarkable except as noted in HPI & below Physical Exam Physical Exam: Constitutional: Obese appearing male sitting up in bed. Mildly tachypneic. No significant distress. Eyes: Pupils are equal round and reactive to light. Conjunctivae are normal. Anicteric sclera. Ears nose, mouth and throat: Nasal cannula in place. No facial deformities. Neck: Trachea is midline. Visual inspection is normal. Respiratory: Diminished bilaterally. No expiratory wheezes. Mild tachypnea. Cardiovascular: Regular rate and rhythm. No murmurs. No edema. Gastrointestinal: Normal bowel sounds, soft, nontender and nondistended. No hepatosplenomegaly noted. Musculoskeletal: No cyanosis. Patient is able to move all extremities. Skin: No rashes, warm dry and intact. Neurologic: No obvious focal neurological deficits seen. Psychiatric: Alert and oriented x3 with a euthymic affect. Results & Data Results & Data ([facility]) Vital Signs (Past 12 Hours) Vital Signs Temp Pulse Resp BP Pulse Ox 03/03/21 15:37 98.1 F 80 21 151/93 H 90 03/03/21 11:31 98.8 F 83 20 120/66 95 03/03/21 08:12 97.5 F L 71 23 134/77 91 Laboratory Results Vital signs, laboratory data and imaging personally reviewed PG Care Time/CCT Total # of Minutes Spent Total Time Spent with Patient: Total time spent is greater than 50% in coordination of care (as documented) at patient's floor/unit and/or counseling patient: Coding Level of Care Code 89292 Inpt Consult Level 5 Diagnoses Acute hypoxemic respiratory failure due to COVID-19 U07.1; J96.01 Pneumonia due to COVID-19 virus U07.1; J12.82 Obesity (BMI 30-39.9) E66.9 Time Spent (min) 60
[2021-03-03] MEDS: 4 mg Once Daily x14 days PO SCH (17:35)
--- NOTE | 2021-03-03 18:06 | Hospitalist Progress Note ---
Date of Service March 03, 2021 Assessment & Plan (1) Acute hypoxemic respiratory failure due to COVID-19: Plan: #. Pneumonia due to COVID-19 virus: Pt with known COVID exposure about two weeks ago, symptoms x 9 days, tested positive last week, diagnosed with pneumonia on Sunday Did not receive any vaccine for COVID-19 Received IV dexamethasone in ED - will continue 6 mg IV daily for up to 10 days Pt agreeable to Remdesivir - reviewed indications, risks, and benefits. Monitor labs daily Continue supplemental O2 to maintain pulseox >92% - currently requiring 15 L via NC COVID isolation precautions Has been using spirometer and also flutter valve Advised to have prone position as tolerated Pulmonology consulted: Started him on baricitinib for 14 days or until the day of discharge whichever comes first. Agrees with 10-day course of Decadron and remdesivir. Continue to monitor creatinine and LFTs while on baricitinib and remdesivir #. Possible superimposed bacterial pneumonia Condition got worse last night Procalcitonin was elevated He has been started with intravenous ceftriaxone and doxycycline We will monitor, procalcitonin tomorrow. #. Asthma: Likely complicating hypoxia and symptoms #. Hypoxia: Acute hypoxic respiratory failure secondary to COVID-19 pneumonia See above Code Status: full code DVT Prophylaxis: Lovenox 40 mg subQ BID Admission and Anticipated Discharge Date Admission Date: February 28, 2021 Subjective Patient was sitting up in bed, NAD, on 15 L nasal cannula oxygen. No issues overnight. Patient is eating and moving bowels okay. Denies any headache/chest pain/palpitation/other review of symptoms. Physical Exam Physical Exam: GENERAL: Alert and oriented x3. NAD, on 15L. HEENT: No pallor, no icterus. Pupils equal, round and reactive to light. Oral mucosa moist. NECK: No JVD, no neck masses. HEART: S1 and S2 heard. Regular rate and rhythm. No murmur, no gallop. RESPIRATORY SYSTEM: Normal AP diameter. No accessory muscle use. No wheezing, no crackles. Decreased breath sounds ABDOMEN: Soft, bowel sounds present, nontender, no distention. CENTRAL NERVOUS SYSTEM: No facial droop. Speech is clear. Obeys simple commands. Moves extremities. EXTREMITIES: No edema, no erythema seen. Results & Data Results & Data ([facility]) Vital Signs (Past 12 Hours) Vital Signs Temp Pulse Resp BP Pulse Ox 03/03/21 15:37 36.7 C 80 21 151/93 H 90 03/03/21 11:31 37.1 C 83 20 120/66 95 03/03/21 08:12 36.4 C L 71 23 134/77 91
[2021-03-03] MEDS: cefTRIAXone SODIUM 2,000 MG in DEXTROSE 5% 50 ML IV SCH (20:10)
[2021-03-04] MEDS: ENOXAPARIN INJ 60 MG/0.6 ML SYR SQ SCH ×2 (03:16→17:20)
[2021-03-04 08:34] LABS: Creatinine Clr Calc Pharmacy 97.9 ml/min; Est GFR (African American) 85.6 ml/min; Est GFR (Non-African American) 73.8 ml/min
[2021-03-04] MEDS ORDERED: FUROSEMIDE 40 MG in SYRINGE 0 ML IV ONE (08:51)
[2021-03-04] MEDS: DOXYCYCLINE HYCLATE 100 MG CAP PO SCH ×2 (08:54→20:30)
[2021-03-04] MEDS: dexAMETHasone 6 MG in SYRINGE 0 ML IV SCH (08:54)
[2021-03-04] MEDS: 4 mg Once Daily x14 days PO SCH (08:55)
[2021-03-04] MEDS ORDERED: FUROSEMIDE 40 MG/4 ML VIAL IV ONE (09:00)
--- NOTE | 2021-03-04 12:46 | Hospitalist Progress Note ---
Date of Service March 04, 2021 Assessment & Plan (1) Acute hypoxemic respiratory failure due to COVID-19: Plan: #. Pneumonia due to COVID-19 virus: Pt with known COVID exposure about two weeks ago, symptoms x 9 days, tested positive last week, diagnosed with pneumonia on Sunday Did not receive any vaccine for COVID-19 Continue with dexamethasone 10/5 and remdesivir 10/5 Continue supplemental O2 to maintain pulse ox >92% - currently requiring very high oxygen, CPAP as needed. 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 Pulmonology consulted: Started him on baricitinib for 14 days or until the day of discharge whichever comes first. Agrees with 10-day course of Decadron and remdesivir x 5d. Continue to monitor creatinine and LFTs while on baricitinib and remdesivir #. Possible superimposed bacterial pneumonia Condition got worse last night Procalcitonin was elevated, downtrending Continue with Rocephin 10/4 and doxycycline 10/5 for 7 days. Continue to monitor. #. Asthma: Likely complicating hypoxia and symptoms #. Hypoxia: Acute hypoxic respiratory failure secondary to COVID-19 pneumonia See above Code Status: full code DVT Prophylaxis: Lovenox 40 mg subQ BID Admission and Anticipated Discharge Date Admission Date: February 28, 2021 Subjective Patient was proning in bed, NAD, on 60 L high flow. Patient's oxygen requirement increased overnight but patient did not have any complain or increased shortness of breath, in fact patient reports that he felt better. Patient is eating and moving bowels okay. Denies any headache/chest pain/palpitation/other review of symptoms. Patient encouraged to use spirometry and flutter valve every hour while awake. Given a dose of Lasix and patient is making urine. I's and O- 2 L so far. Physical Exam Physical Exam: GENERAL: Alert and oriented x3. NAD, on 60 L. HEENT: No pallor, no icterus. Pupils equal, round and reactive to light. Oral mucosa moist. NECK: No JVD, no neck masses. HEART: S1 and S2 heard. Regular rate and rhythm. No murmur, no gallop. RESPIRATORY SYSTEM: Normal AP diameter. No accessory muscle use. No wheezing, no crackles. Decreased breath sounds ABDOMEN: Soft, bowel sounds present, nontender, no distention. CENTRAL NERVOUS SYSTEM: No facial droop. Speech is clear. Obeys simple commands. Moves extremities. EXTREMITIES: Trace edema, no erythema seen. Results & Data Results & Data ([facility]) Vital Signs (Past 12 Hours) Vital Signs Temp Pulse Resp BP Pulse Ox 03/04/21 11:18 37.3 C 105 H 24 157/97 H 90 03/04/21 10:18 104 H 24 88 L 03/04/21 08:09 98 H 22 89 L 03/04/21 07:30 37.1 C 89 20 142/73 H 91 03/04/21 07:08 82 22 90 03/04/21 03:49 37.2 C 77 27 H 152/110 H 88 L 03/04/21 03:20 82 19 93
[2021-03-04] MEDS: REMDESIVIR 100 MG in SODIUM CHLORIDE 0.9% 230 ML IV SCH (13:02)
[2021-03-04] MEDS: SODIUM CHLORIDE 0.9% 10ML FLUSH IV SCH (14:31)
[2021-03-04] MEDS: cefTRIAXone SODIUM 2,000 MG in DEXTROSE 5% 50 ML IV SCH (20:06)
[2021-03-04] MEDS ORDERED: hydrOXYzine HCl 25 MG TAB PO STA (21:28)
[2021-03-04] MEDS ORDERED: XOPENEX/ATROVENT 1.25mg/0.5MG NEB COMBO NEB STA (21:29)
[2021-03-04] MEDS ORDERED: IPRATROPIUM BROMIDE NEB SOLN 0.02% 2.5 ML VIAL INH STA (21:41)
[2021-03-04] MEDS ORDERED: LEVALBUTEROL 1.25MG/0.5ML NEB INH STA (21:42)
[2021-03-04] MEDS ORDERED: methylPREDNISolone 40 MG in SYRINGE 0 ML IV ONE (21:45)
--- NOTE | 2021-03-04 22:06 | XRay Report ---
SINGLE VIEW CHEST CLINICAL HISTORY: Dyspnea. FINDINGS: An AP, portable, upright chest radiograph is compared to study dated 02/28/2021. The cardiom ediastinal silhouette is unremarkable. Multifocal airspace consolidation is similar to the 02/28/2021 examination. No large pleural effusion or pneumothorax is seen. The bony thorax is grossly intact. IMPRESSION: Multifocal airspace consolidation is similar to previous. ACT 112: Negative or not required by law. Electronically signed by: Buck Myers M.D. 03/04/2021 10:05 PM
[2021-03-04 22:11] LABS: Base Excess ABG 1.5 mEq/L (-9-1.8); HCO3 ABG 24 mmol/L (19-24); Oxygen Saturation ABG 83.6 % (90-95); PCO2 ABG 32 mmHg (35-46); PO2 ABG 48 mmHg (80-95)
[2021-03-04 22:17] LABS: BUN Creatinine Ratio 23.8 (10-20); Calcium 8.9 mg/dl (8.5-10.1); Creatinine Clr Calc Pharmacy 97.1 ml/min; Est GFR (African American) 84.7 ml/min; Magnesium 2.5 mg/dl (1.8-2.4); Potassium 4.3 mmol/L (3.5-5.1)
[2021-03-04 22:38] LABS: Allen Test Pos (Pos)
[2021-03-05] MEDS: ENOXAPARIN INJ 60 MG/0.6 ML SYR SQ SCH ×2 (04:20→14:14)
[2021-03-05 07:41] LABS: Hemoglobin 16.8 g/dL (14.0-18.0); Mean Corpuscular Hemoglobin 33.7 pg (25-34); Mean Corpuscular Volume 96.4 fL (80-100); Mean Platelet Volume 9.7 fL (7.4-10.4); Platelet Count 338 K/uL (130-400); RDW Coefficient of Variation 13.2 % (11.5-14.5); RDW Standard Deviation 46.2 fL (36.4-46.3); Red Blood Count 4.98 M/uL (4.7-6.1); White Blood Count 10.55 K/uL (4.8-10.8)
[2021-03-05 08:07] LABS: BUN Creatinine Ratio 20.8 (10-20); Creatinine Clr Calc Pharmacy 77.7 ml/min; Est GFR (African American) 66.4 ml/min; Est GFR (Non-African American) 57.2 ml/min; Magnesium 2.5 mg/dl (1.8-2.4); Potassium 4.5 mmol/L (3.5-5.1)
[2021-03-05] MEDS: DOXYCYCLINE HYCLATE 100 MG CAP PO SCH ×2 (10:10→20:10)
[2021-03-05] MEDS: dexAMETHasone 6 MG in SYRINGE 0 ML IV SCH (10:10)
[2021-03-05] MEDS: 4 mg Once Daily x14 days PO SCH (10:10)
[2021-03-05] MEDS ORDERED: FUROSEMIDE 20 MG in SYRINGE 0 ML IV ONE (13:11)
[2021-03-05] MEDS ORDERED: FUROSEMIDE 40 MG/4 ML VIAL IV SCH (13:30)
--- NOTE | 2021-03-05 14:02 | Hospitalist Progress Note ---
Date of Service March 05, 2021 Assessment & Plan (1) Acute hypoxemic respiratory failure due to COVID-19: Plan: #. Pneumonia due to COVID-19 virus: Pt with known COVID exposure about two weeks ago, symptoms x 9 days, tested positive last week, diagnosed with pneumonia on Sunday Did not receive any vaccine for COVID-19 Remdesivir course completed 03/04. Continue with dexamethasone 10/5. Continue supplemental O2 to maintain pulse ox >92% - currently requiring very high oxygen, CPAP as needed. 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 Continue to monitor BMP. Pulmonology consulted: Started him on baricitinib for 14 days or until the day of discharge whichever comes first. Agrees with 10-day course of Decadron and remdesivir x 5d. Continue to monitor creatinine and LFTs while on baricitinib and remdesivir #. Possible superimposed bacterial pneumonia Condition got worse last night Procalcitonin was elevated, downtrending Continue with Rocephin 10/4 and doxycycline 10/5 for 7 days. Continue to monitor. #. Asthma: Likely complicating hypoxia and symptoms #. Hypoxia: Acute hypoxic respiratory failure secondary to COVID-19 pneumonia See above Code Status: full code DVT Prophylaxis: Lovenox 40 mg subQ BID Admission and Anticipated Discharge Date Admission Date: February 28, 2021 Subjective Patient was sitting up in bed, NAD, on CPAP, no acute events overnight. Patient reports feeling better than yesterday. He denies any fever/heada doris/chills/increased shortness of breath/other review of symptoms. He is eating and moving bowels okay. We will give him 1 more dose of IV Lasix 20 mg today. His I's and O so far is -4.2 L. Physical Exam Physical Exam: GENERAL: Alert and oriented x3. NAD, on CPAP HEENT: No pallor, no icterus. Pupils equal, round and reactive to light. Oral mucosa moist. NECK: No JVD, no neck masses. HEART: S1 and S2 heard. Regular rate and rhythm. No murmur, no gallop. RESPIRATORY SYSTEM: Normal AP diameter. No accessory muscle use. No wheezing, no crackles. Breath sounds over left lung area improving, right lung still has decreased breath sounds. ABDOMEN: Soft, bowel sounds present, nontender, no distention. CENTRAL NERVOUS SYSTEM: No facial droop. Speech is clear. Obeys simple commands. Moves extremities. EXTREMITIES: Trace edema, no erythema seen. Results & Data [facility] Vital Signs (Past 12 Hours) Vital Signs Temp Pulse Pulse Resp BP BP Pulse Ox 03/05/21 11:12 85 26 H 92 03/05/21 10:29 36.5 C 91 H 148/102 H 93 03/05/21 09:19 100 H 90 03/05/21 08:16 24 03/05/21 07:09 36.7 C 87 20 138/92 91 03/05/21 04:29 36.6 C 81 22 147/100 H 93 03/05/21 03:43 91 H 28 H 93
[2021-03-05] MEDS: cefTRIAXone SODIUM 2,000 MG in DEXTROSE 5% 50 ML IV SCH (20:10)
[2021-03-05] MEDS ORDERED: hydrOXYzine HCl 25 MG TAB PO STA (20:16)
[2021-03-05] MEDS ORDERED: SALINE NASAL 225 SPRAYS, GENTAMICIN SULFATE 60 MG, BARCODE IDENTIFIER 1 EA PRN (20:37)
[2021-03-05] MEDS ORDERED: SODIUM CHLORIDE 0.65% NA SOLN 45 ML (OCEAN) ONE (20:44)
[2021-03-05] MEDS ORDERED: SODIUM CHLORIDE 0.65% NA SOLN 45 ML (OCEAN) PRN (20:58)
[2021-03-06] MEDS: ENOXAPARIN INJ 60 MG/0.6 ML SYR SQ SCH ×2 (04:32→16:15)
[2021-03-06 08:03] LABS: BUN Creatinine Ratio 24.9 (10-20); Creatinine Clr Calc Pharmacy 78.9 ml/min; Est GFR (African American) 68.2 ml/min; Est GFR (Non-African American) 58.8 ml/min; Potassium 4.3 mmol/L (3.5-5.1)
[2021-03-06] MEDS: 4 mg Once Daily x14 days PO SCH (09:05)
[2021-03-06] MEDS: dexAMETHasone 6 MG in SYRINGE 0 ML IV SCH (09:05)
[2021-03-06] MEDS: DOXYCYCLINE HYCLATE 100 MG CAP PO SCH ×2 (09:05→20:51)
[2021-03-06] MEDS ORDERED: FUROSEMIDE 20 MG in SYRINGE 0 ML IV ONE (14:26)
--- NOTE | 2021-03-06 14:31 | Hospitalist Progress Note ---
Date of Service March 06, 2021 Assessment & Plan (1) Acute hypoxemic respiratory failure due to COVID-19: Plan: #. Pneumonia due to COVID-19 virus: Pt with known COVID exposure about two weeks ago, symptoms x 9 days, tested positive last week, diagnosed with pneumonia on Sunday Did not receive any vaccine for COVID-19 Remdesivir course completed 03/04. Continue with dexamethasone 10/5. Continue supplemental O2 to maintain pulse ox >92% - currently requiring very high oxygen, CPAP as needed. 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 Continue to monitor BMP. Pulmonology consulted: Started him on baricitinib for 14 days or until the day of discharge whichever comes first. Agrees with 10-day course of Decadron and remdesivir x 5d. Continue to monitor creatinine and LFTs while on baricitinib and remdesivir #. Possible superimposed bacterial pneumonia Condition got worse last night Procalcitonin was elevated, downtrending Continue with Rocephin 10/4 and doxycycline 10/5 for 7 days. DC Rocephin tomorrow. Continue to monitor. #. Asthma: Likely complicating hypoxia and symptoms #. Hypoxia: Acute hypoxic respiratory failure secondary to COVID-19 pneumonia See above Code Status: full code DVT Prophylaxis: Lovenox 60 mg subQ BID Admission and Anticipated Discharge Date Admission Date: February 28, 2021 Subjective Patient was sitting up in bed, NAD, on CPAP, no acute events overnight. Patient reports feeling better. He denies any fever/headache/chills/increased shortness of breath/other review of symptoms. He is eating and moving bowels okay. We will give him 1 more dose of IV Lasix 20 mg today. His I's and O so far is -5.4 L. Physical Exam Physical Exam: GENERAL: Alert and oriented x3. NAD, on CPAP HEENT: No pallor, no icterus. Pupils equal, round and reactive to light. Oral mucosa moist. NECK: No JVD, no neck masses. HEART: S1 and S2 heard. Regular rate and rhythm. No murmur, no gallop. RESPIRATORY SYSTEM: Normal AP diameter. No accessory muscle use. No wheezing, no crackles. Bilateral breath sounds improving but still decreased. ABDOMEN: Soft, bowel sounds present, nontender, no distention. CENTRAL NERVOUS SYSTEM: No facial droop. Speech is clear. Obeys simple commands. Moves extremities. EXTREMITIES: Trace edema, no erythema seen. Results & Data Results & Data ([facility]) Vital Signs (Past 12 Hours) Vital Signs Temp Pulse Pulse Resp BP BP Pulse Ox 03/06/21 11:38 89 20 90 03/06/21 10:58 37.2 C 90 135/85 91 03/06/21 08:04 86 24 92 03/06/21 04:50 36.5 C 74 18 117/76 94
[2021-03-06] MEDS ORDERED: FUROSEMIDE 40 MG/4 ML VIAL IV ONE (14:45)
[2021-03-06] MEDS: cefTRIAXone SODIUM 2,000 MG in DEXTROSE 5% 50 ML IV SCH (20:51)
[2021-03-06] MEDS ORDERED: hydrOXYzine HCl 25 MG TAB PO PRN (21:08)
[2021-03-07] MEDS ORDERED: XOPENEX/ATROVENT 1.25mg/0.5MG NEB COMBO NEB PRN (01:52)
[2021-03-07] MEDS: ENOXAPARIN INJ 60 MG/0.6 ML SYR SQ SCH ×2 (05:30→17:05)
[2021-03-07 08:29] LABS: BUN Creatinine Ratio 25.1 (10-20); Calcium 9.1 mg/dl (8.5-10.1); Est GFR (African American) 64.1 ml/min; Est GFR (Non-African American) 55.3 ml/min; Potassium 4.4 mmol/L (3.5-5.1)
[2021-03-07] MEDS: DOXYCYCLINE HYCLATE 100 MG CAP PO SCH (10:15)
[2021-03-07] MEDS: 4 mg Once Daily x14 days PO SCH (10:15)
[2021-03-07] MEDS: dexAMETHasone 6 MG in SYRINGE 0 ML IV SCH (10:15)
[2021-03-07] MEDS: LEVALBUTEROL 1.25MG/0.5ML NEB INH PRN ×2 (14:57→23:26)
[2021-03-07] MEDS: IPRATROPIUM BROMIDE NEB SOLN 0.02% 2.5 ML VIAL INH PRN ×2 (14:58→23:26)
--- NOTE | 2021-03-07 15:24 | Hospitalist Progress Note ---
Date of Service March 07, 2021 Assessment & Plan (1) Acute hypoxemic respiratory failure due to COVID-19: Plan: #. Pneumonia due to COVID-19 virus: Pt with known COVID exposure about two weeks ago, symptoms x 9 days, tested positive last week, diagnosed with pneumonia on Sunday Did not receive any vaccine for COVID-19 Remdesivir course completed 03/04. Continue with dexamethasone 10/. Continue supplemental O2 to maintain pulse ox >92% - currently requiring very high oxygen, CPAP as needed. COVID isolation precautions Has been using spirometer and also flutter valve Advised to prone position as tolerated I's and O's - 6.9 L so far,, use as needed Lasix to keep patient on soap drier tender side. We will hold Lasix today because of minimal elevation in creatinine. Continue to monitor BMP. Pulmonology consulted: Started him on baricitinib for 14 days or until the day of discharge whichever comes first. Agrees with 10-day course of Decadron and remdesivir x 5d. Continue to monitor creatinine and LFTs while on baricitinib and remdesivir #. Possible superimposed bacterial pneumonia Condition got worse last night Procalcitonin was elevated, downtrending Continue with Rocephin 10/4 and doxycycline 10/5 for 7 days. Completed 7-day course of Rocephin and doxycycline. DC doxycycline today. Continue to monitor. #. Asthma: Likely complicating hypoxia and symptoms #. Hypoxia: Acute hypoxic respiratory failure secondary to COVID-19 pneumonia See above Code Status: full code DVT Prophylaxis: Lovenox 60 mg subQ BID Admission and Anticipated Discharge Date Admission Date: February 28, 2021 Subjective Patient was sitting up in bed, NAD, on high flow, no acute events overnight. Patient reports feeling better as always. He denies any fever/headache/chills/increased shortness of breath/other review of symptoms. He is eating and moving bowels okay. We will not give him Lasix today as his creatinine is mildly elevated. His I's and O so far is - 6.9 L. Physical Exam Physical Exam: GENERAL: Alert and oriented x3. NAD, on CPAP HEENT: No pallor, no icterus. Pupils equal, round and reactive to light. Oral mucosa moist. NECK: No JVD, no neck masses. HEART: S1 and S2 heard. Regular rate and rhythm. No murmur, no gallop. RESPIRATORY SYSTEM: Normal AP diameter. No accessory muscle use. No wheezing, no crackles. Bilateral breath sounds more decreased than yesterday [right more decreased than left] ABDOMEN: Soft, bowel sounds present, nontender, no distention. CENTRAL NERVOUS SYSTEM: No facial droop. Speech is clear. Obeys simple commands. Moves extremities. EXTREMITIES: No edema, no erythema seen. Results & Data Results & Data ([facility]) Vital Signs (Past 12 Hours) Vital Signs Temp Pulse Pulse Resp BP BP Pulse Ox 03/07/21 15:03 90 28 H 91 03/07/21 14:58 85 18 93 03/07/21 11:04 37.0 C 93 H 20 125/86 91 03/07/21 10:51 68 22 89 L 03/07/21 07:46 68 22 93 03/07/21 07:23 36.7 C 78 18 128/93 90 03/07/21 03:29 36.4 C L 65 18 117/75 91
[2021-03-08] MEDS: ENOXAPARIN INJ 60 MG/0.6 ML SYR SQ SCH ×2 (03:08→16:38)
[2021-03-08 08:51] LABS: Hemoglobin 15.5 g/dL (14.0-18.0); Mean Corpuscular Hemoglobin 32.8 pg (25-34); Mean Corpuscular Hgb Conc 34.4 g/dL (32-36); Mean Corpuscular Volume 95.1 fL (80-100); Mean Platelet Volume 10.3 fL (7.4-10.4); Platelet Count 297 K/uL (130-400); RDW Coefficient of Variation 12.7 % (11.5-14.5); RDW Standard Deviation 44.5 fL (36.4-46.3); Red Blood Count 4.73 M/uL (4.7-6.1); White Blood Count 9.12 K/uL (4.8-10.8)
[2021-03-08] MEDS: dexAMETHasone 6 MG in SYRINGE 0 ML IV SCH (09:05)
[2021-03-08 09:16] LABS: BUN Creatinine Ratio 26.7 (10-20); Calcium 8.8 mg/dl (8.5-10.1); Creatinine Clr Calc Pharmacy 92.8 ml/min; Est GFR (African American) 82.9 ml/min; Est GFR (Non-African American) 71.5 ml/min; Potassium 4.4 mmol/L (3.5-5.1)
[2021-03-08] MEDS: 4 mg Once Daily x14 days PO SCH (10:48)
--- NOTE | 2021-03-08 16:48 | Hospitalist Progress Note ---
Date of Service March 08, 2021 Assessment & Plan (1) Acute hypoxemic respiratory failure due to COVID-19: Plan: #. Pneumonia due to COVID-19 virus: #. Acute hypoxic respiratory failure secondary to above Pt with known COVID exposure about two weeks ago, symptoms x 9 days, tested positive last week, diagnosed with pneumonia on Sunday Did not receive any vaccine for COVID-19 Remdesivir course completed 03/04. Continue with dexamethasone 10. Continue supplemental O2 to maintain pulse ox >92% - currently requiring very high oxygen, CPAP as needed. COVID isolation precautions Has been using spirometer and also flutter valve Advised to prone position as tolerated I's and O's -7.8 L so far,, use as needed Lasix to keep patient on drier feeder side. Continue to monitor BMP. Pulmonology consulted: Started him on baricitinib for 14 days or until the day of discharge whichever comes first. Agrees with 10-day course of Decadron and remdesivir x 5d. Continue to monitor creatinine and LFTs while on baricitinib. #. Possible superimposed bacterial pneumonia Condition got worse last night Procalcitonin was elevated, downtrending Continue with Rocephin 10/4 and doxycycline 10/5 for 7 days. Completed 7-day course of Rocephin and doxycycline. Continue to monitor. #. Asthma: Likely complicating hypoxia and symptoms #. Hypoxia: Acute hypoxic respiratory failure secondary to COVID-19 pneumonia See above Code Status: full code DVT Prophylaxis: Lovenox 60 mg subQ BID Admission and Anticipated Discharge Date Admission Date: February 28, 2021 Subjective Patient was sitting up in bed, NAD, on high flow, no acute events overnight. Patient reports feeling better. He denies any fever/headache/chills/increased shortness of breath/other review of symptoms. He is eating and moving bowels okay. His I's and O so far is -7.8 L. Physical Exam Physical Exam: GENERAL: Alert and oriented x3. NAD, on 55 L at 80%. HEENT: No pallor, no icterus. Pupils equal, round and reactive to light. Oral mucosa moist. NECK: No JVD, no neck masses. HEART: S1 and S2 heard. Regular rate and rhythm. No murmur, no gallop. RESPIRATORY SYSTEM: Normal AP diameter. No accessory muscle use. No wheezing, no crackles. Bilateral breath sounds seems more improved than yesterday but still decreased a lot. ABDOMEN: Soft, bowel sounds present, nontender, no distention. CENTRAL NERVOUS SYSTEM: No facial droop. Speech is clear. Obeys simple commands. Moves extremities. EXTREMITIES: No edema, no erythema seen. Results & Data Results & Data ([facility]) Vital Signs (Past 12 Hours) Vital Signs Temp Pulse Pulse Resp BP Pulse Ox 03/08/21 16:30 36.5 C 67 20 125/84 97 03/08/21 14:08 83 22 93 03/08/21 11:59 36.6 C 90 20 131/82 91 03/08/21 10:27 90 22 90 03/08/21 08:07 36.9 C 72 18 125/83 96 03/08/21 08:01 78 20 92
[2021-03-08] MEDS: IPRATROPIUM BROMIDE NEB SOLN 0.02% 2.5 ML VIAL INH PRN (23:21)
[2021-03-08] MEDS: LEVALBUTEROL 1.25MG/0.5ML NEB INH PRN (23:21)
[2021-03-09] MEDS: ENOXAPARIN INJ 60 MG/0.6 ML SYR SQ SCH ×2 (03:08→14:56)
[2021-03-09 09:06] LABS: BUN Creatinine Ratio 23.4 (10-20); Calcium 8.6 mg/dl (8.5-10.1); Creatinine Clr Calc Pharmacy 99.9 ml/min; Est GFR (African American) 90.5 ml/min; Est GFR (Non-African American) 78.1 ml/min
[2021-03-09] MEDS: dexAMETHasone 6 MG in SYRINGE 0 ML IV SCH (09:35)
[2021-03-09] MEDS: 4 mg Once Daily x14 days PO SCH (09:35)
[2021-03-10] MEDS: ENOXAPARIN INJ 60 MG/0.6 ML SYR SQ SCH ×2 (02:45→14:46)
[2021-03-10] MEDS: dexAMETHasone 6 MG in SYRINGE 0 ML IV SCH (09:21)
[2021-03-10] MEDS: 4 mg Once Daily x14 days PO SCH (09:21)
[2021-03-11] MEDS: ENOXAPARIN INJ 60 MG/0.6 ML SYR SQ SCH ×2 (02:48→14:25)
[2021-03-11] MEDS: 4 mg Once Daily x14 days PO SCH (09:10)
--- NOTE | 2021-03-11 15:47 | Hospitalist Progress Note ---
Date of Service March 09, 2021 Assessment & Plan (1) Acute hypoxemic respiratory failure due to COVID-19: Plan: #. Pneumonia due to COVID-19 virus: #. Acute hypoxic respiratory failure secondary to above Pt with known COVID exposure about two weeks ago, symptoms x 9 days, tested positive last week, diagnosed with pneumonia on Sunday Did not receive any vaccine for COVID-19 Remdesivir course completed 03/04. Continue with dexamethasone 10/5. Continue supplemental O2 to maintain pulse ox >92% - currently requiring very high oxygen, CPAP as needed. 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 Continue to monitor BMP. Pulmonology consulted: Started him on baricitinib for 14 days or until the day of discharge whichever comes first. Agrees with 10-day course of Decadron and remdesivir x 5d. Continue to monitor creatinine and LFTs while on baricitinib. Remains stable with minimal improvement-continue current management #. Possible superimposed bacterial pneumonia Condition got worse last night Procalcitonin was elevated, downtrending Continue with Rocephin 10/4 and doxycycline 10/5 for 7 days. Completed 7-day course of Rocephin and doxycycline. Continue to monitor. No signs and or symptoms of bacterial infection #. Asthma: Likely complicating hypoxia and symptoms #. Hypoxia: Acute hypoxic respiratory failure secondary to COVID-19 pneumonia See above Code Status: full code DVT Prophylaxis: Lovenox 60 mg subQ BID Admission and Anticipated Discharge Date Admission Date: February 28, 2021 Subjective 03/09/2021 The patient was seen and examined in telemetry unit and in the Covid room He has been complaining of cough with moderate shortness of breath at rest Denies any chest pain or palpitation Review of Systems Review of Systems: All systems reviewed and are unremarkable except as noted below Respiratory: Moderate shortness of breath at rest Physical Exam Physical Exam: Lying in bed with moderate distress due to shortness of breath Constitutional: well developed, well nourished, + ill appearing and + obese Eyes: PERRL, conjunctivae normal, anicteric sclerae ENMT: external ear and nose normal, oropharynx normal Neck: trachea midline, no thyromegaly Respiratory: + respiratory distress and + cough Auscultation: + diminished lung sounds and + crackles (At the bases) Cardiovascular: Rate/Rhythm: regular rate and regular rhythm; not tachycardic Heart Sounds: normal S1 and normal S2; no murmur Extremities: + edema (Trace edema bilaterally) Gastrointestinal (Abdomen): Inspection/Auscultation: normal bowel sounds; abdomen not distended Percussion/Palpation: abdomen soft; abdomen nontender Musculoskeletal: No acute arthritis in any joint Neurologic: Alert, awake and oriented x3 Results & Data Results & Data ([facility]) Vital Signs (Past 12 Hours) Vital Signs Temp Pulse Pulse Resp BP BP Pulse Ox 03/11/21 14:16 97 H 22 94 03/11/21 11:30 36.9 C 94 H 22 106/71 93 03/11/21 07:23 36.4 C L 63 22 119/78 98 03/11/21 05:00 36.9 C 79 67 16 105/73 98
--- NOTE | 2021-03-11 15:49 | Hospitalist Progress Note ---
Date of Service March 10, 2021 Assessment & Plan (1) Acute hypoxemic respiratory failure due to COVID-19: Plan: #. Pneumonia due to COVID-19 virus: #. Acute hypoxic respiratory failure secondary to above Pt with known COVID exposure about two weeks ago, symptoms x 9 days, tested positive last week, diagnosed with pneumonia on Sunday Did not receive any vaccine for COVID-19 Remdesivir course completed 03/04. Continue with dexamethasone 03/01. Continue supplemental O2 to maintain pulse ox >92% - currently requiring very high oxygen, CPAP as needed. COVID isolation precautions Has been using spirometer and also flutter valve Advised to prone position as tolerated I's and O's -7.8 L so far,, use as needed Lasix to keep patient on flat drier side. Continue to monitor BMP. Pulmonology consulted: Started him on baricitinib for 14 days or until the day of discharge whichever comes first. Agrees with 10-day course of Decadron and remdesivir x 5d. Continue to monitor creatinine and LFTs while on baricitinib. Remains stable with minimal improvement-continue current management Very minimal improvement Has been getting Lasix occasionally to keep him on the dry side #. Possible superimposed bacterial pneumonia Condition got worse last night Procalcitonin was elevated, downtrending Continue with Rocephin 02/28 and doxycycline 10/ for 7 days. Completed 7-day course of Rocephin and doxycycline. Continue to monitor. No signs and or symptoms of bacterial infection #. Asthma: Likely complicating hypoxia and symptoms #. Hypoxia: Acute hypoxic respiratory failure secondary to COVID-19 pneumonia See above Code Status: full code DVT Prophylaxis: Lovenox 60 mg subQ BID Admission and Anticipated Discharge Date Admission Date: February 28, 2021 Subjective 03/09/2021 The patient was seen and examined in telemetry unit and in the Covid room He has been complaining of cough with moderate shortness of breath at rest Denies any chest pain or palpitation 03/10/2021 Patient was seen and examined in telemetry unit and in the Covid room He remains stable with minimal improvement Still requiring about 7 L of oxygen to maintain saturation Review of Systems Review of Systems: All systems reviewed and are unremarkable except as noted below Respiratory: Moderate shortness of breath at rest Physical Exam Physical Exam: Lying in bed with moderate distress due to shortness of breath Constitutional: well developed, well nourished, + ill appearing and + obese Eyes: PERRL, conjunctivae normal, anicteric sclerae ENMT: external ear and nose normal, oropharynx normal Neck: trachea midline, no thyromegaly Respiratory: + respiratory distress, + labored breathing, + cough and + tachypneic Auscultation: + diminished lung sounds and + crackles (At the bases) Cardiovascular: Rate/Rhythm: regular rate and regular rhythm; not tachycardic Heart Sounds: normal S1 and normal S2; no murmur Extremities: + edema (Trace edema bilaterally) Gastrointestinal (Abdomen): Inspection/Auscultation: normal bowel sounds; abdomen not distended Percussion/Palpation: abdomen soft; abdomen nontender Musculoskeletal: No acute arthritis in any joint Neurologic: Alert, awake and oriented x3 Results & Data Results & Data ([facility]) Vital Signs (Past 12 Hours) Vital Signs Temp Pulse Pulse Resp BP BP Pulse Ox 03/11/21 14:16 97 H 22 94 03/11/21 11:30 36.9 C 94 H 22 106/71 93 03/11/21 07:23 36.4 C L 63 22 119/78 98 03/11/21 05:00 36.9 C 79 67 16 105/73 98
--- NOTE | 2021-03-11 15:51 | Hospitalist Progress Note ---
Date of Service March 11, 2021 Assessment & Plan (1) Acute hypoxemic respiratory failure due to COVID-19: Plan: #. Pneumonia due to COVID-19 virus: #. Acute hypoxic respiratory failure secondary to above Pt with known COVID exposure about two weeks ago, symptoms x 9 days, tested positive last week, diagnosed with pneumonia on Sunday Did not receive any vaccine for COVID-19 Remdesivir course completed 03/04. Continue with dexamethasone 03/01. Continue supplemental O2 to maintain pulse ox >92% - currently requiring very high oxygen, CPAP as needed. 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 Continue to monitor BMP. Pulmonology consulted: Started him on baricitinib for 14 days or until the day of discharge whichever comes first. Agrees with 10-day course of Decadron and remdesivir x 5d. Continue to monitor creatinine and LFTs while on baricitinib. Remains stable with minimal improvement-continue current management Very minimal improvement Has been getting Lasix occasionally to keep him on the dry side Has been requiring 6 L of oxygen to maintain saturation Clinically better today-we will continue current management #. Possible superimposed bacterial pneumonia Condition got worse last night Procalcitonin was elevated, downtrending Continue with Rocephin 10 and doxycycline 10/5 for 7 days. Completed 7-day course of Rocephin and doxycycline. Continue to monitor. No signs and or symptoms of bacterial infection #. Asthma: Likely complicating hypoxia and symptoms No attack of asthma #. Hypoxia: Acute hypoxic respiratory failure secondary to COVID-19 pneumonia See above Code Status: full code DVT Prophylaxis: Lovenox 60 mg subQ BID Admission and Anticipated Discharge Date Admission Date: February 28, 2021 Subjective 03/09/2021 The patient was seen and examined in telemetry unit and in the Covid room He has been complaining of cough with moderate shortness of breath at rest Denies any chest pain or palpitation 03/10/2021 Patient was seen and examined in telemetry unit and in the Covid room He remains stable with minimal improvement Still requiring about 7 L of oxygen to maintain saturation 03/11/2021 The patient was seen and examined in telemetry unit and in the Covid room He has been feeling more improved today Requiring 6 L oxygen to maintain saturation Less cough with less shortness of breath at rest Review of Systems Review of Systems: All systems reviewed and are unremarkable except as noted below Respiratory: Mild shortness of breath at rest Physical Exam Physical Exam: Lying in bed with moderate distress due to shortness of breath Constitutional: well developed, well nourished, + ill appearing and + obese Eyes: PERRL, conjunctivae normal, anicteric sclerae ENMT: external ear and nose normal, oropharynx normal Neck: trachea midline, no thyromegaly Respiratory: + respiratory distress, + labored breathing, + cough and + ta chypneic Auscultation: + diminished lung sounds and + crackles (At the bases) Cardiovascular: Rate/Rhythm: regular rate and regular rhythm; not tachycardic Heart Sounds: normal S1 and normal S2; no murmur Extremities: + edema (Trace edema bilaterally) Gastrointestinal (Abdomen): Inspection/Auscultation: normal bowel sounds; abdomen not distended Percussion/Palpation: abdomen soft; abdomen nontender Musculoskeletal: Is any acute arthritis involving any joint Neurologic: Alert, awake and oriented x3 Results & Data Results & Data ([facility]) Vital Signs (Past 12 Hours) Vital Signs Temp Pulse Pulse Resp BP BP Pulse Ox 03/11/21 14:16 97 H 22 94 03/11/21 11:30 36.9 C 94 H 22 106/71 93 03/11/21 07:23 36.4 C L 63 22 119/78 98 03/11/21 05:00 36.9 C 79 67 16 105/73 98 Medications Administered Current Inpatient Medications Acetaminophen (Acetaminophen 325 Mg Tab) 650 mg PO Q4H PRN PRN Reason: Pain or Fever Stop: 03/30/21 13:58 Baricitinib (4 Mg Once Daily X14 Days) 4 mg PO DAILY BERTO; Protocol Stop: 03/17/21 15:59 Last Admin: 03/11/21 09:10 Dose: 4 mg Documented by: Benzonatate (Benzonatate 100 Mg Capsule) 100 mg PO TID PRN PRN Reason: Cough Stop: 03/31/21 00:42 Last Admin: 03/01/21 21:23 Dose: 100 mg Documented by: Enoxaparin Sodium (Enoxaparin Inj 60 Mg/0.6 Ml Syr) 60 mg SQ Q12H BERTO Stop: 04/03/21 02:59 Last Admin: 03/11/21 14:25 Dose: 60 mg Documented by: Hydroxyzine HCl (Hydroxyzine Hcl 25 Mg Tab) 25 mg PO HS PRN PRN Reason: anxiety before bipap Stop: 04/05/21 21:07 Last Admin: 03/06/21 23:18 Dose: 25 mg Documented by: Ipratropium [place] (Ipratropium [place] Neb Soln 0.02% 2.5 Ml Vial) 0.5 mg INH Q4H PRN PRN Reason: sob/wheezing Stop: 04/06/21 01:59 Last Admin: 03/08/21 23:21 Dose: 0.5 mg Documented by: Levalbuterol HCl (Levalbuterol Tartrate 15 Gm Hfa.Aer.Ad) 2 puffs INH Q4H PRN PRN Reason: sob/wheeze Stop: 03/30/21 22:11 Last Admin: 03/06/21 20:07 Dose: 2 puffs Documented by: Levalbuterol HCl (Levalbuterol 1.25mg/0.5ml Neb) 1.25 mg INH Q4H PRN PRN Reason: sob/wheezing Stop: 04/06/21 01:59 Last Admin: 03/08/21 23:21 Dose: 1.25 mg Documented by: Sodium Chloride (Sodium Chloride 0.65% Na Soln 45 Ml ([place])) 1 sprays NA UD PRN PRN Reason: Dryness Stop: 04/04/21 20:57
[2021-03-11] MEDS ORDERED: FUROSEMIDE 60 MG in SYRINGE 0 ML IV ONE (15:52)
[2021-03-11] MEDS ORDERED: POTASSIUM CHLORIDE CRTAB 20 MEQ TABCR PO STA (15:55)
[2021-03-11] MEDS ORDERED: FUROSEMIDE 40 MG/4 ML VIAL IV SCH (16:00)
[2021-03-12] MEDS: ENOXAPARIN INJ 60 MG/0.6 ML SYR SQ SCH ×2 (02:54→16:01)
[2021-03-12 06:05] LABS: Eosinophils # (auto) 0.03 K/uL (0-0.5); Eosinophils % (auto) 0.4 %; Hematocrit (blood only) 40.1 % (42-52); Hemoglobin 13.6 g/dL (14.0-18.0); Immature Granulocytes # (auto) 0.05 K/uL (0.00-0.02); Immature Granulocytes % (auto) 0.7 %; Lymphocytes # (auto) 3.02 K/uL (1.2-3.4); Mean Corpuscular Hemoglobin 32.5 pg (25-34); Mean Corpuscular Hgb Conc 33.9 g/dL (32-36); Mean Corpuscular Volume 95.9 fL (80-100); Mean Platelet Volume 10.4 fL (7.4-10.4); Monocytes # (auto) 0.64 K/uL (0.11-0.59); Monocytes % (auto) 9.1 %; Neutrophils # (auto) 3.29 K/uL (1.4-6.5); Neutrophils % (auto) 46.8 %; Platelet Count 258 K/uL (130-400); RDW Coefficient of Variation 12.8 % (11.5-14.5); RDW Standard Deviation 44.5 fL (36.4-46.3); Red Blood Count 4.18 M/uL (4.7-6.1); White Blood Count 7.03 K/uL (4.8-10.8)
[2021-03-12 06:36] LABS: Alanine Aminotransferase 88 U/L (12-78); Albumin Level 2.5 gm/dl (3.4-5.0); Aspartate Aminotransferase 41 U/L (15-37); BUN Creatinine Ratio 27.5 (10-20); Blood Urea Nitrogen 38 mg/dl (7-18); Calcium 8.6 mg/dl (8.5-10.1); Carbon Dioxide 30 mmol/L (21-32); Chloride 103 mmol/L (98-107); Creatinine Clr Calc Pharmacy 76.7 ml/min; Est GFR (African American) 66.4 ml/min; Est GFR (Non-African American) 57.2 ml/min; Glucose 83 mg/dl (70-99); Magnesium 2.2 mg/dl (1.8-2.4); Potassium 4.2 mmol/L (3.5-5.1); Sodium 137 mmol/L (136-145)
[2021-03-12 06:41] LABS: Alkaline Phosphatase 58 U/L (45-117); Bilirubin Direct 0.1 mg/dl (0-0.2); Bilirubin,Total 0.5 mg/dl (0.2-1); C Reactive Protein < 0.29 mg/dl (0-0.29); Phosphorus 4.9 mg/dl (2.5-4.9); Total Protein 6.2 gm/dl (6.4-8.2)
[2021-03-12] MEDS: 4 mg Once Daily x14 days PO SCH (08:45)
--- NOTE | 2021-03-12 14:49 | Hospitalist Progress Note ---
Date of Service March 12, 2021 Assessment & Plan (1) Acute hypoxemic respiratory failure due to COVID-19: Plan: #. Pneumonia due to COVID-19 virus: #. Acute hypoxic respiratory failure secondary to above Pt with known COVID exposure about two weeks ago, symptoms x 9 days, tested positive last week, diagnosed with pneumonia on Sunday Did not receive any vaccine for COVID-19 Remdesivir course completed 03/04. Continue with dexamethasone 03/01. Continue supplemental O2 to maintain pulse ox >92% - currently requiring very high oxygen, CPAP as needed. 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 Continue to monitor BMP. Remains negatively balanced Clinically much better Pulmonology consulted: Started him on baricitinib for 14 days or until the day of discharge whichever comes first. Agrees with 10-day course of Decadron and remdesivir x 5d. Continue to monitor creatinine and LFTs while on baricitinib. Remains stable with minimal improvement-continue current management Very minimal improvement Has been getting Lasix occasionally to keep him on the dry side Has been requiring 6 L of oxygen to maintain saturation Oxygen requirements has gone down to 4 L-advised more ambulation in the room Possible discharge tomorrow following 2 steps O2 saturation test if the oxygen requirements is below 4 L/min #. Possible superimposed bacterial pneumonia Condition got worse last night Procalcitonin was elevated, downtrending Continue with Rocephin 10/ and doxycycline 10/ for 7 days. Completed 7-day course of Rocephin and doxycycline. Continue to monitor. No signs and or symptoms of bacterial infection #. Asthma: Likely complicating hypoxia and symptoms No attack of asthma #. Hypoxia: Acute hypoxic respiratory failure secondary to COVID-19 pneumonia See above Code Status: full code DVT Prophylaxis: Lovenox 60 mg subQ BID Admission and Anticipated Discharge Date Admission Date: February 28, 2021 Subjective 03/09/2021 The patient was seen and examined in telemetry unit and in the Covid room He has been complaining of cough with moderate shortness of breath at rest Denies any chest pain or palpitation 03/10/2021 Patient was seen and examined in telemetry unit and in the Covid room He remains stable with minimal improvement Still requiring about 7 L of oxygen to maintain saturation 03/11/2021 The patient was seen and examined in telemetry unit and in the Covnd room He has been feeling more improved today Requiring 6 L oxygen to maintain saturation Less cough with less shortness of breath at rest 03/12/2021 The patient was seen and examined in telemetry unit and in the Covnd room He has been feeling much better today and is requiring about 4 L of oxygen to maintain saturation He was advised to walk around in the room He will await to a steps O2 saturation before discharge tomorrow Review of Systems Review of Systems: All systems reviewed and are unremarkable except as noted below Respiratory: Mild shortness of breath at rest Physical Exam Physical Exam: Lying in bed with moderate distress due to shortness of breath Constitutional: well developed, well nourished, + ill appearing and + obese Eyes: PERRL, conjunctivae normal, anicteric sclerae ENMT: external ear and nose normal, oropharynx normal Neck: trachea midline, no thyromegaly Respiratory: + respiratory distress, + labored breathing, + cough and + tachypneic Auscultation: + diminished lung sounds and + crackles (At the bases) Cardiovascular: Rate/Rhythm: regular rate and regular rhythm; not tachycardic Heart Sounds: normal S1 and normal S2; no murmur Extremities: + edema (Trace edema bilaterally) Gastrointestinal (Abdomen): Inspection/Auscultation: normal bowel sounds; abdomen not distended Percussion/Palpation: abdomen soft; abdomen nontender Musculoskeletal: No acute arthritis in any joint Neurologic: Alert, awake and oriented x3. No focal sensory or motor deficit appreciated Results & Data Results & [facility] ([facility]) Vital Signs (Past 12 Hours) Vital Signs Temp Pulse Pulse Resp BP BP Pulse Ox 03/12/21 12:21 36.7 C 93 H 18 109/74 93 03/12/21 08:02 36.4 C L 91 H 18 103/77 92 03/12/21 08:00 57 L 03/12/21 02:52 36.7 C 86 16 95/77 L 97 Laboratory Results Short CBC 03/12/21 Range/Units 05:15 WBC 7.03 (4.8-10.8) K/uL Hgb 13.6 L (14.0-18.0) g/dL Hct 40.1 L (42-52) % Plt Count 258 (130-400) K/uL BMP 03/12/21 05:15 Sodium 137 Potassium 4.2 Chloride 103 Carbon Dioxide 30 BUN 38 H Creatinine 1.37 Glucose 83 Calcium 8.6 Liver Function 03/12/21 Range/Units 05:15 Total Bilirubin 0.5 (0.2-1) mg/dl Direct Bilirubin 0.1 (0-0.2) mg/dl AST 41 H (15-37) U/L ALT 88 H (12-78) U/L Alkaline Phosphatase 58 (45-117) U/L Albumin 2.5 L (3.4-5.0) gm/dl Medications Administered Current Inpatient Medications Acetaminophen (Acetaminophen 325 Mg Tab) 650 mg PO Q4H PRN PRN Reason: Pain or Fever Stop: 03/30/21 13:58 Baricitinib (4 Mg Once Daily X14 Days) 4 mg PO DAILY BERTO; Protocol Stop: 03/17/21 15:59 Last Admin: 03/12/21 08:45 Dose: 4 mg Documented by: Benzonatate (Benzonatate 100 Mg Capsule) 100 mg PO TID PRN PRN Reason: Cough Stop: 03/31/21 00:42 Last Admin: 03/01/21 21:23 Dose: 100 mg Documented by: Enoxaparin Sodium (Enoxaparin Inj 60 Mg/0.6 Ml Syr) 60 mg SQ Q12H BERTO Stop: 04/03/21 02:59 Last Admin: 03/12/21 02:54 Dose: 60 mg Documented by: Hydroxyzine HCl (Hydroxyzine Hcl 25 Mg Tab) 25 mg PO HS PRN PRN Reason: anxiety before bipap Stop: 04/05/21 21:07 Last Admin: 03/06/21 23:18 Dose: 25 mg Documented by: Ipratropium [place] (Ipratropium [place] Neb Soln 0.02% 2.5 Ml Vial) 0.5 mg INH Q4H PRN PRN Reason: sob/wheezing Stop: 04/06/21 01:59 Last Admin: 03/08/21 23:21 Dose: 0.5 mg Documented by: Levalbuterol HCl (Levalbuterol Tartrate 15 Gm Hfa.Aer.Ad) 2 puffs INH Q4H PRN PRN Reason: sob/wheeze Stop: 03/30/21 22:11 Last Admin: 03/06/21 20:07 Dose: 2 puffs Documented by: Levalbuterol HCl (Levalbuterol 1.25mg/0.5ml Neb) 1.25 mg INH Q4H PRN PRN Reason: sob/wheezing Stop: 04/06/21 01:59 Last Admin: 03/08/21 23:21 Dose: 1.25 mg Documented by: Sodium Chloride (Sodium Chloride 0.65% Na Soln 45 Ml ([place])) 1 sprays NA UD PRN PRN Reason: Dryness Stop: 04/04/21 20:57
--- NOTE | 2021-03-12 17:02 | XRay Report ---
XR chest 1V portable HISTORY: Shortness of breath. Covid pneumonia COMPARISON: Chest 03/16/2021. FINDINGS: No pneumothorax. No pleural effusions.. The heart is stable in size. Multifocal bilateral a irspace opacities are similar to the prior study. There are low lung volumes. IMPRESSION: Multifocal airspace opacities similar to the prior studies. ACT 112: Negative or not required by law. Electronically signed by: Shelton Burrows M.D. 03/12/2021 5:01 PM
[2021-03-13] MEDS: ENOXAPARIN INJ 60 MG/0.6 ML SYR SQ SCH ×2 (03:10→15:12)
[2021-03-13 07:52] LABS: BUN Creatinine Ratio 23.9 (10-20); Calcium 8.3 mg/dl (8.5-10.1); Creatinine Clr Calc Pharmacy 87.9 ml/min; Est GFR (African American) 77.9 ml/min; Est GFR (Non-African American) 67.2 ml/min; Potassium 4.4 mmol/L (3.5-5.1)
[2021-03-13] MEDS: 4 mg Once Daily x14 days PO SCH (09:00)
--- NOTE | 2021-03-13 16:08 | Hospitalist Progress Note ---
Date of Service March 13, 2021 Assessment & Plan (1) Acute hypoxemic respiratory failure due to COVID-19: Plan: #. Pneumonia due to COVID-19 virus: #. Acute hypoxic respiratory failure secondary to above Pt with known COVID exposure about two weeks ago, symptoms x 9 days, tested positive last week, diagnosed with pneumonia on Sunday Did not receive any vaccine for COVID-19 Remdesivir course completed 03/04. Continue with dexamethasone 10/5. Continue supplemental O2 to maintain pulse ox >92% - currently requiring very high oxygen, CPAP as needed. 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 Continue to monitor BMP. Remains negatively balanced Clinically much better and is still requiring 4 L of oxygen to maintain saturation Pulmonology consulted: Started him on baricitinib for 14 days or until the day of discharge whichever comes first. Agrees with 10-day course of Decadron and remdesivir x 5d. Continue to monitor creatinine and LFTs while on baricitinib. Remains stable with minimal improvement-continue current management Very minimal improvement Has been getting Lasix occasionally to keep him on the dry side Has been requiring 6 L of oxygen to maintain saturation Oxygen requirements has gone down to 4 L-advised more ambulation in the room We will get physical therapy evaluation and possible discharge tomorrow following 8-8 steps O2 saturation test #. Possible superimposed bacterial pneumonia Condition got worse last night Procalcitonin was elevated, downtrending Continue with Rocephin 10/4 and doxycycline 10/5 for 7 days. Completed 7-day course of Rocephin and doxycycline. Continue to monitor. No signs and or symptoms of bacterial infection #. Asthma: Likely complicating hypoxia and symptoms No attack of asthma #. Hypoxia: Acute hypoxic respiratory failure secondary to COVID-19 pneumonia See above Code Status: full code DVT Prophylaxis: Lovenox 60 mg subQ BID Admission and Anticipated Discharge Date Admission Date: February 28, 2021 Subjective 03/09/2021 The patient was seen and examined in telemetry unit and in the Covid room He has been complaining of cough with moderate shortness of breath at rest Denies any chest pain or palpitation 03/10/2021 Patient was seen and examined in telemetry unit and in the Covid room He remains stable with minimal improvement Still requiring about 7 L of oxygen to maintain saturation 03/11/2021 The patient was seen and examined in telemetry unit and in the Covid room He has been feeling more improved today Requiring 6 L oxygen to maintain saturation Less cough with less shortness of breath at rest 03/12/2021 The patient was seen and examined in telemetry unit and in the Covid room He has been feeling much better today and is requiring about 4 L of oxygen to maintain saturation He was advised to walk around in the room He will await to a steps O2 saturation before discharge tomorrow 03/13/2021 The patient was seen and examined in telemetry unit and in the Covid room He has been stable and is still requiring 4 L of oxygen Denies any symptoms at rest but becomes very symptomatic with hypoxia and tachycardia with ambulation We will advise for PT evaluation today Review of Systems Review of Systems: All systems reviewed and are unremarkable except as noted below Respiratory: Mild shortness of breath at rest Physical Exam Physical Exam: Lying in bed with moderate distress due to shortness of breath Constitutional: well developed, well nourished, + ill appearing and + obese Eyes: PERRL, conjunctivae normal, anicteric sclerae ENMT: external ear and nose normal, oropharynx normal Neck: trachea midline, no thyromegaly Respiratory: + respiratory distress, + labored breathing, + cough and + tachypneic Auscultation: + diminished lung sounds and + crackles (At the bases) Cardiovascular: Rate/Rhythm: regular rate and regular rhythm; not tachycardic Heart Sounds: normal S1 and normal S2; no murmur Extremities: + edema (Trace edema bilaterally) Gastrointestinal (Abdomen): Inspection/Auscultation: normal bowel sounds; abdomen not distended Percussion/Palpation: abdomen soft; abdomen nontender Musculoskeletal: No acute arthritis in any joint Neurologic: Alert, awake and oriented x3. No focal sensory or motor deficit appreciated Results & Data Results & Data ([facility]) Vital Signs (Past 12 Hours) Vital Signs Temp Pulse Pulse Pulse Resp BP Pulse Ox 03/13/21 16:01 37.1 C 90 20 115/91 97 03/13/21 15:28 80 03/13/21 14:38 113 H 18 99 03/13/21 11:00 36.9 C 86 18 120/78 91 03/13/21 09:02 36.5 C 86 16 110/84 96 Laboratory Results BMP 03/13/21 06:38 Sodium 138 Potassium 4.4 Chloride 106 Carbon Dioxide 32 BUN 29 H Creatinine 1.20 Glucose 83 Calcium 8.3 L Medications Administered Current Inpatient Medications Acetaminophen (Acetaminophen 325 Mg Tab) 650 mg PO Q4H PRN PRN Reason: Pain or Fever Stop: 03/30/21 13:58 Baricitinib (4 Mg Once Daily X14 Days) 4 mg PO DAILY BERTO; Protocol Stop: 03/17/21 15:59 Last Admin: 03/13/21 09:00 Dose: 4 mg Documented by: Benzonatate (Benzonatate 100 Mg Capsule) 100 mg PO TID PRN PRN Reason: Cough Stop: 03/31/21 00:42 Last Admin: 03/01/21 21:23 Dose: 100 mg Documented by: Enoxaparin Sodium (Enoxaparin Inj 60 Mg/0.6 Ml Syr) 60 mg SQ Q12H BERTO Stop: 04/03/21 02:59 Last Admin: 03/13/21 15:12 Dose: 60 mg Documented by: Hydroxyzine HCl (Hydroxyzine Hcl 25 Mg Tab) 25 mg PO HS PRN PRN Reason: anxiety before bipap Stop: 04/05/21 21:07 Last Admin: 03/06/21 23:18 Dose: 25 mg Documented by: Ipratropium [place] (Ipratropium [place] Neb Soln 0.02% 2.5 Ml Vial) 0.5 mg INH Q4H PRN PRN Reason: sob/wheezing Stop: 04/06/21 01:59 Last Admin: 03/08/21 23:21 Dose: 0.5 mg Documented by: Levalbuterol HCl (Levalbuterol Tartrate 15 Gm Hfa.Aer.Ad) 2 puffs INH Q4H PRN PRN Reason: sob/wheeze Stop: 03/30/21 22:11 Last Admin: 03/06/21 20:07 Dose: 2 puffs Documented by: Levalbuterol HCl (Levalbuterol 1.25mg/0.5ml Neb) 1.25 mg INH Q4H PRN PRN Reason: sob/wheezing Stop: 04/06/21 01:59 Last Admin: 03/08/21 23:21 Dose: 1.25 mg Documented by: Sodium Chloride (Sodium Chloride 0.65% Na Soln 45 Ml ([place])) 1 sprays NA UD PRN PRN Reason: Dryness Stop: 04/04/21 20:57
[2021-03-14] MEDS: ENOXAPARIN INJ 60 MG/0.6 ML SYR SQ SCH (01:20)
[2021-03-14] MEDS: 4 mg Once Daily x14 days PO SCH (08:41)
--- NOTE | 2021-03-14 12:25 | Hospitalist Progress Note ---
Date of Service March 14, 2021 Assessment & Plan (1) Acute hypoxemic respiratory failure due to COVID-19: Plan: Acute hypoxemic respiratory failure COVID-19 pneumonia CXR:Progressively worsened multifocal pneumonia. Did not receive any vaccine for COVID-19 Completed Remdesivir and Dexamethasone course Nebs, Lasix PRN Appreciate Pulmonology Input Continue Pulmonary Hygiene Also on Baricitinib Saturating low 90s on room air 2step:Needs 3 Liters of supplemental oxygen with ambulation Possible superimposed bacterial pneumonia Received 7-day course of Rocephin and doxycycline Procalcitonin trended down Asthma: Likely complicating hypoxia and symptoms Continue home inhalers Code Status: Full code DVT Px: Lovenox SQ Admission and Anticipated Discharge Date Admission Date: February 28, 2021 Subjective Patient is seen and examined at bedside States feeling much better today Reports minimal cough with clear expectoration Offers no other complaints Denies chest pain, dyspnea, dizziness, nausea, abd pain Review of Systems Review of Systems: All systems reviewed & are unremarkable except as noted in Subjective Physical Exam Physical Exam: Physical Exam: Vitals signs as noted above General Appearance:Obese, no apparent distress Head: normocephalic, Atraumatic Eyes: normal inspection, EOMI Neck: supple, Trachea midline Respiratory/Chest: Decreased breath sounds, CTA Cardiovascular: S1, S2, No murmur Abdomen/GI:Soft, Non tender, Bowel sounds present Extremities/Musculoskeletal:normal inspection, no edema Neurologic/Psych:AAOX3, grossly no focal neurological deficits Skin: normal color, warm Results & Data Results & Data ([facility]) Vital Signs (Past 12 Hours) Vital Signs Temp Pulse Pulse Pulse Pulse Pulse Pulse 03/14/21 11:37 36.7 C 03/14/21 11:02 122 H 125 H 122 H 125 H 96 H 03/14/21 08:00 80 03/14/21 06:57 36.7 C 03/14/21 03:07 36.5 C Pulse Pulse Resp Resp Resp Resp Resp 03/14/21 11:37 100 H 20 03/14/21 11:02 100 H 20 21 20 20 03/14/21 08:00 03/14/21 06:57 73 03/14/21 03:07 55 L 16 Resp BP BP Pulse Ox Pulse Ox Pulse Ox Pulse Ox 03/14/21 11:37 131/78 90 03/14/21 11:02 17 85 L 87 L 93 03/14/21 08:00 03/14/21 06:57 107/81 93 03/14/21 03:07 99/59 L 97 Pulse Ox Pulse Ox Pulse Ox 03/14/21 11:37 03/14/21 11:02 84 L 98 90 03/14/21 08:00 03/14/21 06:57 03/14/21 03:07
--- NOTE | 2021-03-14 17:12 | Discharge Summary ---
Date of Service March 14, 2021 Admission HPI Per Admitting Provider This is a 55 y/o male with a PMH of moderate persistent asthma who presents for evaluation of hypoxia and worsening shortness of breath. Pt was exposed to a co-worker with pneumonia about two weeks ago. Nine days ago, he started with a cough productive of sputum and fatigue. Five days ago he decided to get tested for COVID due to the exposure and worsening symptoms. The test came back positive on Sunday (3 days ago) and he was seen by his PCP for possible pneumonia. His O2 sats in the office were borderline on RA (low 90s) and he was tachycardic so he was referred to the ED for evaluation. In the ED, he was diagnosed with COVID pneumonia, given steroids and an albuterol inhaler and discharged home with a pulseox to monitor his sats at home. Last night his sats started to drop into the 84-87% range so this morning he came to the ED for evaluation and additional treatment. He has now been referred for admission. Pt has not been vaccinated for COVID. Today, he continues with a cough that was initially productive but now less so. No hemoptysis. Ribs sore from coughing so hard/so much. He is short of breath with exertion and with lying flat. Breathing seems to be okay at rest if he is sitting up. Fever started a few days ago - Tmax 102.5F. +chills and sweats. Using Tylenol with some relief. Mild nausea but no vomiting or diarrhea. Appetite decreased but trying to keep up with fluids - water, OJ, tim ronny. No significant myalgias or arthralgias. No change in taste or smell. +fatigue. No TORRES, CP, chest heaviness but does not difficulty taking a deep breath, wheezing at times. Occasional dizziness with position changes. Recent diagnosis with asthma - two years of chronic cough. History of frequent pneumonia past ten years - around twice a year. Admission Exam Per Admitting Provider Physical Exam Constitutional: well developed and well nourished; no acute distress Eyes: + anicteric sclerae Neck: trachea midline Respiratory: no respiratory distress Auscultation: + diminished lung sounds and + crackles (right > left - from bases to mid-lung); no rhonchi and no wheezes Cardiovascular: Rate/Rhythm: regular rate and regular rhythm Heart Sounds: no gallop, no murmur and no cardiac rub Vessels: dorsalis pedis pulses present and radial pulses present Extremities: no calf tenderness and no edema Gastrointestinal (Abdomen): Inspection/Auscultation: normal bowel sounds; abdomen not distended Percussion/Palpation: abdomen soft; abdomen nontender Musculoskeletal: Head/Neck/Chest: normocephalic, head atraumatic and neck supple Skin: no rashes, warm and dry Neurologic: moves all extremities; no focal motor deficits and not confused Psychiatric: A+Ox3, euthymic affect Principal Diagnosis Acute hypoxemic respiratory failure COVID-19 pneumonia Discharge Data Allergies Allergy/AdvReac Type Severity Reaction Status Date / Time No Known Allergies Allergy Unknown NONE Unverified 02/28/21 10:36 Consultations 02/28/21 11:28 ED Decision to Admit Stat 03/02/21 20:31 Consult Pulmonology Routine Hospital Course (1) Acute hypoxemic respiratory failure due to COVID-19: Acute hypoxemic respiratory failure COVID-19 pneumonia CXR:Progressively worsened multifocal pneumonia. Did not receive any vaccine for COVID-19 Completed Remdesivir and Dexamethasone course Nebs, Lasix PRN Appreciate Pulmonology Input Continue Pulmonary Hygiene Also on Baricitinib Saturating low 90s on room air 2step:Needs 3 Liters of supplemental oxygen with ambulation Possible superimposed bacterial pneumonia Received 7-day course of Rocephin and doxycycline Procalcitonin trended down Asthma: Likely complicating hypoxia and symptoms Continue home inhalers Code Status: Full code DVT Px: Lovenox SQ Total Time Total Time Spent Total Time Spent (In Minutes): 41 minutes Discharge Plan Discharge Items Patient Disposition: Home - Self-Care Reason For Visit: COVID PHNEUMONIA, HYPOXIA Discharge Diagnosis: Acute hypoxemic respiratory failure COVID-19 pneumonia Activity: Per Instructions section Exercise/Sports: Wait until after follow-up appointment Non-emergency contact: Primary Care Provider Call non-emergency contact if: you have any medication questions, your symptoms worsen, your pain is concerning for you and you have a fever Follow-up/Referrals: Bianka Baker PA-C [Primary Care Provider] - (Date & Time 03/17/2021 1:40 PM Provider Osmani Bro MD Department Family Medicine [facility] PLEASE NOTE THAT THIS IS A TELEHEALTH APPOINTMENT. PLEASE FOLLOW THE INSTRUCTIONS PROVIDED IN YOUR EMAIL. IF YOU HAVE ANY QUESTIONS REGARDING THIS APPOINTMENT, PLEASE CALL ) Diet: Regular Addtl Attending Provider Instructions: Follow-up with your primary care physician Bianka Baker PA-C on 03/17/2021 1:40 PM Use oxygen 3 L via nasal cannula with ambulation as advised. Continue to monitor your oxygen saturations using a pulse oximeter and discuss with your physician as needed. Home Isolation COVID-19 Instructions The following information about Home Isolation is from the CDC Website: https://www.cdc.gov/coronavirus/2019-ncov/hcp/tbwzhcfn-utpvsqy-xvllup.html Stay home except to get medical care People who are mildly ill with COVID-19 are able to isolate at home during their illness. You should restrict activities outside your home, except for getting medical care. Do not go to work, school, or public areas. Avoid using public transportation, ride-sharing, or taxis. Separate yourself from other people and animals in your home People: As much as possible, you should stay in a specific room and away from other people in your home. Also, you should use a separate bathroom, if available. Animals: You should restrict contact with pets and other animals while you are sick with COVID-19, just like you would around other people. Although there have not been reports of pets or other animals becoming sick with COVID-19, it is still recommended that people sick with COVID-19 limit contact with animals until more information is known about the virus. When possible, have another member of your household care for your animals while you are sick. If you are sick with COVID-19, avoid contact with your pet, including petting, snuggling, being kissed or licked, and sharing food. If you must care for your pet or be around animals while you are sick, wash your hands before and after you interact with pets and wear a face mask. Call ahead before visiting your doctor If you have a medical appointment, call the healthcare provider and tell them that you have or may have COVID-19. This will help the healthcare providers office take steps to keep other people from getting infected or exposed. Wear a face mask You should wear a face mask when you are around other people (e.g., sharing a room or vehicle) or pets and before you enter a healthcare providers office. If you are not able to wear a face mask (for example, because it causes trouble breathing), then people who live with you should not stay in the same room with you, or they should wear a face mask if they enter your room. Cover your coughs and sneezes Cover your mouth and nose with a tissue when you cough or sneeze. Throw used tissues in a lined trash can. Immediately wash your hands with soap and water for at least 20 seconds or, if soap and water are not available, clean your hands with an alcohol-based hand workers compensation consultant that contains at least 60% alcohol. Clean your hands often Wash your hands often with soap and water for at least 20 seconds, especially after blowing your nose, coughing, or sneezing; going to the bathroom; and before eating or preparing food. If soap and water are not readily available, use an alcohol-based hand workers compensation consultant with at least 60% alcohol, covering all surfaces of your hands and rubbing them together until they feel dry. Soap and water are the best option if hands are visibly dirty. Avoid touching your eyes, nose, and mouth with unwashed hands. Avoid sharing personal household items You should not share dishes, drinking glasses, cups, eating utensils, towels, or bedding with other people or pets in your home. After using these items, they should be washed thoroughly with soap and water. Clean all high-touch surfaces everyday High touch surfaces include counters, tabletops, doorknobs, bathroom fixtures, toilets, phones, keyboards, tablets, and bedside tables. Also, clean any surfaces that may have blood, stool, or body fluids on them. Use a household cleaning spray or wipe, according to the label instructions. Labels contain instructions for safe and effective use of the cleaning product including precautions you should take when applying the product, such as wearing gloves and making sure you have good ventilation during use of the product. Monitor your symptoms Seek prompt medical attention if your illness is worsening (e.g., difficulty breathing).Beforeseeking care, call your healthcare provider and tell them that you have, or are being evaluated for, COVID-19. Put on a face mask before you enter the facility. These steps will help the healthcare providers office to keep other people in the office or waiting room from getting infected or exposed. Ask your healthcare provider to call the local or state health department. Persons who are placed under active monitoring or facilitated self-monitoring should follow instructions provided by their local health department or occupational health professionals, as appropriate. When working with your local health department check their available hours. If you have a medical emergency and need to call 911, notify the dispatch personnel that you have, or are being evaluated for COVID-19. If possible, put on a face mask before emergency medical services arrive. Discontinuing home isolation Patients with confirmed COVID-19 should remain under home isolation precautions until the risk of secondary transmission to others is thought to be low. The decision to discontinue home isolation precautions should be made on a krio-fz-mkgx basis, in consultation with healthcare providers and state and [facility] health departments. Coronavirus disease 2019 (COVID-19) is a virus that causes a respiratory illness. It is caused by a coronavirus called 2019 novel coronavirus (2019- nCoV). There are many types of coronavirus. Coronaviruses are a very common cause of bronchitis. They may sometimes cause lung infection(pneumonia). Symptoms can range from mild to severe respiratory illness. These viruses are also foundin some animals. COVID-19 was first found in people in [facility], in late 2019. In 2020, several cases of COVID-19 have been confirmed in the [place] Public health officials are working to find the source. How the virus spreads is not yet fully known. It may be spread through droplets of fluid that a person coughs or sneezes into the air. It may be spread if you touch a surface with virus on it, such as a handle or object, and then touch your mouth. What are the symptoms of COVID-19? Some people have no symptoms or mild symptoms. Symptoms may appear 2 to 14 days after contact with the virus. Symptoms can include: Fever Coughing Trouble breathing What are possible complications from COVID-19? In many cases, this virus can cause infection (pneumonia) in both lungs. In some cases, this can cause . How is COVID-19 diagnosed? Your healthcare provider will ask about your symptoms. He or she will also ask about your recent travel and contact with sick people. Testing for the virus is only done through the [facility]. If yourhealthcare provider thinks you may have COVID- 19, he or she will work with your local health department and the CDC on testing. Follow all instructions from your healthcare provider. COVID-19 is diagnosed by: Nasal and throat swab. A cotton-tipped swab is wiped inside your nose or throat. This is done to check for viruses in your nasal mucus. Sputum culture. A small sample of mucus coughed from your lungs (sputum) is collected if you have a cough. It is checked for the virus. How is COVID-19 treated? There is currently no medicine to treat the virus. Treatment is done to help your body while it fights the virus. This is known as supportive care. Supportive care may include: Pain medicine. These include acetaminophen and ibuprofen. They are used to help ease pain and reduce fever. Bed rest. This helps your body fight the illness. For severe illness, you may need to stay in the hospital. Care during severe illness may include: IV (intravenous) fluids.These are given through a vein to help keep your body hydrated. Oxygen. Supplemental oxygen or ventilation with a breathing machine (ventilator) may be given. This is done to keep enough oxygen in your body. Are you at risk for COVID-19? If youve been to a place where people have been sick with this virus, you are at risk for infection. You are at risk if you: Recently traveled to an affected area Had contact with a sick person who recently traveled to this area Had contact with a person who was diagnosed with COVID-19 How can COVID-19 be prevented? There is no vaccine yet. The best prevention is to not have contact with the virus. The CDC advises that people should not travel to areas where there are COVID-19 outbreaks right now for any reason that is not urgent. To help prevent spreading the infection, wash your hands often, or use an alcohol-basedhand workers compensation consultant. If you are in an area with COVID-19: Wash your hands often. Or use an alcohol-based hand workers compensation consultant often. Only touch your eyes, nose, or mouth with clean hands. Dont have contact with people who are sick. Follow local instructions about being in public. For example, you may be told to not use public transport for a period of time. Stay away from markets that have live or animals. Wash your hands after touching any animals. Don't touch animals that may be sick. Dont share eating or drinking tools with sick people. Dont kiss someone who is sick. Clean surfaces often with disinfectant. If you were in an area with COVID-19 in the last 14 days: Call your healthcare provider. He or she can talk with local health staff to see what action may be needed. Follow all instructions from your provider. Take your temperature every morning and evening for at least 14 days. This is to check for fever. Keep a record of the readings. Keep watch for symptoms of the virus. Tell your provider right away if you have symptoms. If you were in an area with COVID-19 and have a fever or other symptoms: Dont panic. Keep in mind that other illnesses can cause similar symptoms. Stay away from work, school, and public places. Limit physical contact with family members. Don't kiss anyone or share eating or drinking utensils. Clean surfaces you touch with disinfectant. This is to help prevent the virus from spreading. Call your healthcare provider. Explain that you have been exposed to COVID-19 and have symptoms. Do this before going to any hospital. Wait for instructions. Keep in mind that healthcare staff may wear protective equipment such as masks, gowns, gloves, and eye protection. You may be put in a separate room. This is to prevent the possible virus from spreading. Tell the healthcare staff about recent travel. This includes local travel on public transport. Staff may need to find other people you have been in contact with. Follow all instructions the healthcare staff give you. If you have been diagnosed with COVID-19 Follow all instructions from your healthcare provider. Dont leave your home, except to get medical care. Call your healthcare providers office before going. They can prepare and give you instructions. This will help prevent the virus from spreading. Dont go to work, school, or public areas. Dont use public transport or taxis. Stay away from other people in your home. Have them wear face masks around you. Dont share household items or food. Wear a face mask if you can. This includes at home or in a medical facility. Cover your face with a tissue when you cough or sneeze. Throw the tissue away. Wash your hands. Wash your hands often. Caregivers should: Follow all instructions from healthcare staff. Wear a face mask and protective clothing as advised. Wash hands often. Keep track of the sick persons symptoms. Clean surfaces, fabrics, and laundry thoroughly. Keep other people away from the sick person. When to call your healthcare provider Call your healthcare provider: If youve recently traveled and have symptoms If you have been diagnosed with COVID-19 and your symptoms are worse To learn more To find out more about COVID-19, visit the CDC website at www.cdc.gov/coronavirus/2019-ncov/index.html. [employer]. [address] [place] [address]. All rights reserved. This information is not intended as a substitute for professional medical care. Always follow your healthcare professional's instructions. This information has been adapted from [employer] Pending Studies at Discharge: No Stand-Alone Forms: My [facility] [employer], Smoking Cessation Medications and DC Order Prescriptions: Continued albuterol sulfate 90 mcg/actuation HFA aerosol inhaler 2 inh inhalation Q4H PRN (Reason: shortness of breath or wheezing) Qty: 6.7 RF: 0 acetaminophen [Tylenol Extra Strength] 500 mg Tablet 500 mg PO Q6H PRN (Reason: Pain) RF: 0 Breo Ellipta 100-25 mcg/dose Blister With Device 1 inh INHALATION DAILY RF: 0 famotidine 20 mg tablet 20 mg PO HS RF: 0 loratadine 10 mg tablet 10 mg PO DAILY RF: 0 Discontinued prednisone 20 mg tablet 40 mg PO DAILY 4 Days Qty: 8 RF: 0 Discharge Orders: Discharge Order (Routine); Ordered 03/14/21 Ordered By: Fadi Hatch/Other Patient Handouts: COVID-19 Home Care, Traveling with Oxygen, Using an Oxygen Tank at Home Admission Data Admit Date/Time: 02/28/21 12:08 Attending Provider: Fadi Castanon Admit Provider: Rui Marie Primary Care Provider: Bianka Baker Other Providers: Kapil Sandhu Other Interventions: Discharge Summary Assessment (RN) Last Done: 03/14/21 14:24
== END 2021-03-14 16:00 | disposition home or self-care (01) | DRG 177 ==
LOC: ED 08:57 → SUATTDRO 12:08 → 2S 12:08